=== PATIENT | male | born 1940 | race Caucasian/White ===

== ENCOUNTER 2023-08-03 15:15 | Inpatient (IN) | payer MEDICARE, BC, SELFPAY ==
[2023-08-03] VITALS (12 sets, daily range): BP systolic 111–143; BP diastolic 62–71; BMI 31.0; BMI 29.8
[2023-08-03 10:22] LABS: Urine Albumin Negative (Neg - Trace); Urine Bilirubin Negative (Negative); Urine Character Clear (Clear); Urine Color Yellow; Urine Glucose 3+ (Negative); Urine Ketone Negative (Negative); Urine Leukocyte Trace (Negative); Urine Nitrite Negative (Negative); Urine Occult Blood Negative (Negative); Urine Urobilinogen Negative (Neg - 1+)
[2023-08-03 10:23] LABS: Glucose - Point of Care 137 mg/dl (70-99)
[2023-08-03 10:23] LABS: % Basophils 0.1 % (0-2); % Immature Granulocytes 0.6 % (0-0.5); % Lymphocytes 3.6 % (20.5-51.1); % Monocytes 10.3 % (1.7-9.3); % Neutrophils 85.4 % (42.2-75.2); Absolute Immature Granulocytes 0.1 10^3/uL (0-0.05); Absolute Lymphocytes 0.5 10^3/uL (1.2-3.4); Absolute Monocytes 1.4 10^3/uL (0.1-0.6); Hematocrit 36.2 % (39.0-52.0); Hemoglobin 11.8 g/dL (13.0-18.0); Mean Corp Hgb Conc. 32.6 g/dL (33.0-37.0); Mean Corpuscular Hgb 29.9 pg (27.0-31.0); Mean Corpuscular Volume 91.6 fL (80.0-94.0); Mean Platelet Volume 10.3 fL (7.4-10.4); Nucleated Red Blood Cells % 0 % (-); Platelet Count 266 10^3/uL (130-400); Red Blood Cell Count 3.95 10^6/uL (4.70-6.10); Red Cell Dist. Width 14.3 % (11.5-14.5)
--- NOTE | 2023-08-03 10:27 | ED.GENMED ---
History of Present Illness
General
Chief Complaint: Change in Mental Status
Source: patient and records
Time Seen by Provider: 08/03/23 10:10
Travel History
Have you had any contact with someone who has COVID-19?: No
Do you have any symptoms of coronavirus? Fever > 100 degrees, chills, cough, shortness of breath, sore throat, loss of taste or smell, muscle aches, or headache?: No
History of Present Illness
History of Present Illness:
This patient is an 83-year-old male reportedly was noted to have change in mental status while at breakfast with slurred speech. Patient states that his blood sugars have been 'out of whack' since Tuesday and he just generally has not been feeling
well associated with drowsiness. He denies pain, and specifically denies abdominal pain, chest pain, urinary symptoms. He denies dyspnea. I noticed a cough which she states is occasional and nonproductive. He denies recent fever or chills. He
has not been able to check his blood sugar recently because he ran out of strips for the meter as per patient. He denies nausea, vomiting, or other complaints. I noticed a mild left facial droop which she states is chronic and baseline for him.
He also notes that right asymmetric leg swelling is baseline for him.
Past History
Past History
ED Past Medical History: CAD, Hypercholesterolemia and NIDDM
ED Past Surgical History: Cardiac and Cholecystectomy
Social History
Tobacco: Non-smoker
Alcohol: None
Drug: None
Living: other ([place])
Employment: Retired
Phy Exam
Physical Exam
Physical Exam:
GENERAL: Alert , in no apparent distress
EYE: pupils equal and reactive, eomi, no photphobia
NECK: Supple, no significant adenopathy.
ENT: o/p clr, mmdry
CARDIAC: Regular rate and rhythm .
LUNGS: Clear breath sounds bilaterally, no acute respiratory distress, no wheezes/rales/rhonchi, occas cough noted
ABDOMEN: Soft, without focal tenderness, no r/g
NEUROLOGICAL: Alert and oriented to person, place, month andyear, speech sl slurred, mild L facial droop, maee, sens intact to light touch
SKIN: Warm and dry, skin intact.
MUSCULOSKELETAL: Sl R > L le edema, well perfused.
PSYCH: Normal and appropriate interaction.
Course
Orders/Labs/Results
Orders:
Orders
08/03/23 10:10
Blood Culture Q30M
GRADY Source: Blood/Venous
Specimen Description:
08/03/23 10:13
B-Hydroxybutyrate Urgent
Comment: ADD
CMP [Comprehensive Metabolic Panel] Urgent
Complete Blood Count/With Diff Urgent
NT-proBNP Urgent
Comment: ADD ON
Protein/Creat Ratio (Random) Routine
Date Specimen was Collected: 08/03/23
Time Specimen was Collected: 10:12
Comment: ADD ON
TSH Urgent
Comment: ADD ON
Urinalysis Reflex To Culture Urgent
Date Specimen was Collected: 08/03/23
Time Specimen was Collected: 10:12
Urine Microscopic Reflex Cult Urgent
Urine Culture Urgent
GRADY Source: U
Specimen Description:
Date Specimen was Collected: 08/03/23
Time Specimen was Collected: 10:12
08/03/23 10:23
CT Head W/o Iv Contrast Stat
Comment:
Reason For Exam: mental status change
08/03/23 10:24
Electrocardiogram (*1) Urgent
Reason for Study: Other
Other Reason for Exam: sepsis
Cardiac Monitoring- Treatment ONCE
EKG- Treatment ONCE
0.9% Sodium Chloride 1000 ml [Nss] 1,000 ml IV BOLUS
CR Chest - 2 Views Urgent
Comment:
Reason For Exam: cough
08/03/23 10:55
COVID-19 Antigen Urgent
Source: Nasal Swab
Lactic Acid Q4H
Comment: CANCEL 2nd LACTIC ACID IF 1st LACTIC ACID IS LESS THAN 2
Troponin I Urgent
Influenza A+B Rapid Molecular Stat
GRADY Source: Nasal Swab
Specimen Description:
08/03/23 11:13
Blood Culture Q30M
GRADY Source: Blood/Venous
Specimen Description:
08/03/23 11:20
CT Abd/pel Without Iv Or Oral Urgent
Comment:
Reason For Exam: new onset renal failure, uti
08/03/23 11:21
Aztreonam [Azactam] 2,000 mg IV NOW STA
08/03/23 11:45
Echo 2D MMode Color/Doppler Routine
Reason for Study: abnormal EKG
08/03/23 14:40
Add On- LAB Routine
Tests Added?: pCHF BNP, TSH
08/03/23 14:44
Lactic Acid Q4H
Comment: CANCEL 2nd LACTIC ACID IF 1st LACTIC ACID IS LESS THAN 2
08/03/23 14:46
Admit/Transfer Patient As Directed
Co-Sign Provider:
Level of Care: Inpatient admission
Assign to:: ICU
Physician / Group: Cristofer
Diagnosis: SHADY
Reason for Hospitalization: above
Expected length of stay greater than two midnights?: Yes
ELOS- Estimated Length of Stay in days: 3
I certify the patient meets the requirements for IP care: Yes
08/03/23 14:52
Code Status As Directed
Resuscitation Status: Full Code
08/03/23 Dinner
1800 calorie (15 carb) Diabetic
At Your Request: Limited Participation
08/03/23 16:59
Acetaminophen [Tylenol] 650 mg PO Q4HPRN PRN
Aspirin Low Dose EC [Aspir Low (Enteric Coated)] 81 mg PO DAILY
Atorvastatin [Lipitor] 40 mg PO NOON
Dextrose 50%-Water [Dextrose 50% Syringe] 12.5 grams IV [id number] PRN
Glucagon [GlucaGen] 1 mg IM PRN PRN
Insulin Aspart Corrective Low [Novolog Flexpen-Low Resistance] See Protocol SC AC
Metoprolol Xl [Toprol Xl] 100 mg PO NOON
08/03/23 16:59
CARDIOLOGY CONSULT Routine
Consulting Provider: Ludin Douglass
Was physician already notified: Yes
NEPHROLOGY CONSULT Routine
Consulting Provider: Adam Dodd
Was physician already notified: Yes
UROLOGY CONSULT Routine
Consulting Provider: Owen Peraza Jr.
Was physician already notified: Yes
Bedside Glucose Monitoring As Directed
Frequency: AC&HS
Comment: Change to q6h if pt on TPN, tube feeding or not eating
Sequential Compression Device [Pneumatic Compression Sleeves] As Directed
Type: Knee high
DX Deep Vein Thrombosis Video Routine
08/03/23 18:00
CefTRIAXone [Rocephin] 1,000 mg IV Q24H
08/03/23 18:01
Troponin I Q8H
08/03/23 20:30
STOOL [C difficile Antigen & Toxins] Urgent
GRADY Source: Feces/Stool
Specimen Description:
Date Specimen was Collected: 08/03/23
Time Specimen was Collected: 20:29
Stool Culture Urgent
GRADY Source: Feces/Stool
Specimen Description:
Date Specimen was Collected: 08/03/23
Time Specimen was Collected: 20:29
08/03/23 22:00
Insulin Glargine Lantus [Lantus] 10 units Subcutaneous Insulin Syringe [Syringe-Insulin] 0 unit SC HS
08/04/23 03:37
CBC/With Diff [Complete Blood Count/With Diff] IN AM
CMP [Comprehensive Metabolic Panel] IN AM
Glycohemoglobin (HgbA1c) IN AM
Troponin I Q8H
08/04/23 12:00
Levothyroxine [Synthroid] 75 mcg PO NOON
Abnormal Lab Results
08/03/23 08/03/23 08/03/23
10:13 10:21 10:55
WBC 14.0 H 10^3/uL
(4.8-10.8)
RBC 3.95 L 10^6/uL
(4.70-6.10)
Hgb 11.8 L g/dL
(13.0-18.0)
Hct 36.2 L %
(39.0-52.0)
MCHC 32.6 L g/dL
(33.0-37.0)
Abs Immat Gran (auto) 0.1 H 10^3/uL
(0-0.05)
Absolute Neuts (auto) 12.0 H 10^3/uL
(1.4-6.5)
Absolute Lymphs (auto) 0.5 L 10^3/uL
(1.2-3.4)
Absolute Monos (auto) 1.4 H 10^3/uL
(0.1-0.6)
Immature Gran % 0.6 H %
(0-0.5)
Neutrophils % 85.4 H %
(42.2-75.2)
Lymphocytes % 3.6 L %
(20.5-51.1)
Monocytes % 10.3 H %
(1.7-9.3)
Potassium 5.3 H mmol/L
(3.5-5.1)
Chloride 109 H mmol/L
(98-107)
Carbon Dioxide 19 L mmol/L
(22-30)
BUN 64 H mg/dl
(9-20)
Creatinine 4.7 H* mg/dL
(0.7-1.3)
Glucose 145 H mg/dl
(70-99)
Lactic Acid 2.5 H mmol/L
(0.7-2.0)
AST 95 H U/L
(17-59)
Troponin I 23.500 H* ng/ml
Total Protein 5.6 L g/dl
(6.3-8.2)
Albumin 3.1 L g/dl
(3.5-5.0)
Leukocyte Esterase Rfl Trace A
(Negative)
Urine WBC (Reflex) 16-20 A /HPF
(0-5)
Urine Bacteria (Reflex) Few A
(Negative)
Urine Glucose 3+ A
(Negative)
B-Hydroxybutyrate 0.67 H mmol/L
(0.02-0.27)
POC Glucose 137 H mg/dl
(70-99)
08/03/23 10:13
08/03/23 10:13
Vital Signs
Initial and Last Documented VS:
Initial Vital Signs
Pulse Resp BP Pulse Ox
75 18 126/64 96
08/03/23 10:04 08/03/23 10:04 08/03/23 10:04 08/03/23 10:04
Last Documented Vital Signs
Temp Pulse Resp BP Pulse Ox
97.7 F 66 16 107/56 97
08/09/23 11:05 08/09/23 12:01 08/09/23 11:05 08/09/23 12:01 08/09/23 11:05
*Critical Care Note
Total Time (30-74mins, 75-104mins- exclusive of procedures): Not Applicable
Update Note
Update Note:
Patient presents to the Emergency Department with ___reported change in mental status
Number and Complexity of Problems Addressed at the Encounter
� Chronic conditions affecting care:
� Acute Exacerbation and/or Progression of Chronic Illness:
� Differential Diagnosis includes: But not limited to hypoglycemia, hyperglycemia/DKA, electrolyte imbalance, infection, TIA/CVA, etc.
Amount and/or Complexity of Data to be Reviewed and Analyzed
� I performed an independent evaluation of and my interpretation is:
EKG:St elevation noted, greater than in prior ecg in infer leads
CT:head nad, cxr nad
1).The prostate is enlarged measuring 6.9 cm
The urinary bladder is markedly distended measuring approximately 14 x 14 x 12 cm.
There is severe left-sided hydronephrosis and left hydroureter down to the level of the urinary bladder and moderate right hydronephrosis and right artery down to the level of the urinary bladder. Additionally, there is moderate-severe bilateral
perinephric edema.
2). There is a 4 mm wall calcification at the anterior aspect of the right side of the urinary bladder.
3). There is cholecystectomy
4).There is small right pleural effusion with compressive atelectasis of the right lung base.
There is mild acinar and interstitial airspace disease posterior left lung base
Xrays:wbc elevation, mild anemia..new onset ARF, u/a suggestive of infection.
Laboratory Studies:
Other:
� Review of other/old records reveals:
� Clinical information was obtained by an independent historian:
� Prescriptions/Medications Considered but not given:
� Further testing considered but not performed:
Risk of Complications and/or Morbidity or Mortality of Patient Management
� Social determinants of health affecting care:
� Discussion with other providers (PCP, Hospitalists, Consultants, etc):
� Escalation of care including admission/observation vs risk of discharge considered: 1119am d/w Dr Evonne Argueta, given no cp,w ill await trop which is still pending.
Trop noted, pt still without cp...seen by DR Douglass, will get echo now,likley demand ischemia.
CT noted by me, large bladder with ?L renal abnl..awaiting formal read. Suspect urosepsis at this time,bp stable, abx ordered and started. Case d/w daughter who reports pt having diarrhea for last 2 wks. I added c dif and stool cx. She also
notes pt having urinary frequency lately. Of note, I called [place], unable to reach someone who witnessed event today. He remains awake but sleepy, oriented.
1244 pm over 2L drained with [place]. CT noted. TT to uro. D/w Dr Peraza, agrees with plan, given bladder drained over short period of time, hospitalists to avoid lovenox/thinners in short term given risk of hematuria.
ED Attending Note
-
Portions of this chart may have been created with voice recognition software.� Occasional wrong word or��sound alike� substitutions may have occurred due to the inherent limitations of voice recognition software.
Discharge Plan
Departure
Patient Disposition: Admit
Date of Disposition: 08/03/23
Time of Disposition: 13:04
Admit to doctor: conchis
Presentation/result/management discussed w/ accepting MD/DO: mitchell douglass
Condition: Fair
Discharge Problem:
Acute urinary retention, Acute renal failure, Acute UTI
Interventions
Interventions:
*Risk Screen - Suicide Last Done: 08/03/23 10:22
*General Assessment Last Done: 08/03/23 10:04
*Neglect/Abuse Screening Last Done: 08/03/23 10:22
ED- Fall Risk Assessment Last Done: 08/03/23 10:22
*ED COVID-19 Vaccine History Last Done: 08/03/23 10:04
*Nursing Disposition Last Done: 08/03/23 16:54
ED- Pulmonary Assessment Last Done: 08/03/23 10:22
ED-Psychological Assessment Last Done: 08/03/23 16:54
ED- Neurological Assessment Last Done: 08/03/23 10:22
ED- Cardiac Assessment Last Done: 08/03/23 10:22
Discharge Date and Time
Discharge Date/Time: 08/03/23 16:55
[2023-08-03 10:33] LABS: Urine Bacteria Few (Negative); Urine Squamous Cell 0-2 /LPF (Few)
[2023-08-03 10:34] LABS: Urine Red Blood Cell 0-2 /HPF (0-2); Urine White Cell 16-20 /HPF (0-5)
[2023-08-03] MEDS: NSS 1000 IV (10:45)
[2023-08-03 11:09] LABS: ALT (SGPT) 33 U/L (0-50); AST (SGOT) 95 U/L (17-59); Albumin 3.1 g/dl (3.5-5.0); Alkaline Phosphatase 87 U/L (38-126); Blood Urea Nitrogen 64 mg/dl (9-20); Calcium 8.6 mg/dl (8.4-10.2); Carbon Dioxide 19 mmol/L (22-30); Chloride 109 mmol/L (98-107); Estimated Creatinine Clearance 13 ml/min; Glucose 145 mg/dl (70-99); Potassium 5.3 mmol/L (3.5-5.1); Sodium 139 mmol/L (135-145); Total Bilirubin 0.6 mg/dl (0.2-1.3); Total Protein 5.6 g/dl (6.3-8.2); eGFR 11.52
[2023-08-03 11:41] LABS: Lactic Acid 2.5 mmol/L (0.7-2.0)
[2023-08-03 11:46] LABS: COVID-19 Antigen Negative (Negative)
[2023-08-03] MEDS: AZACTAM 2000 MG IV (11:54)
--- NOTE | 2023-08-03 12:17 | CON.CAR ---
Addendum entered and electronically signed by Ludin Douglass MD 08/03/23 15:50:
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 His friend told him he looked bad at breakfast, and should go to hospital. He denies chest pain.
Exam: RRR, III/ systolic murmur at apex, 2+ LE edema. Cr 4.7, WBC 14, TnI 23.5. EKG with NSR, borderline ST elevation inferiorly.
Echo: decline in EF from 50% to 15%, severe MR.
Discussed with team. He is thought to have an obstructive uropathy with urinary retention, possible UTI, and acute renal failure. A champagne was placed with 2L urine output.
There is no chest pain. 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 Discussed with interventional cards. Given Cr 4.7, we will not plan for cath at this time, but will re-assess as he recovers and Cr improves. Continue ASA 81mg. Continue Toprol XL. Avoid nephrotoxic
agents.
He appears volume overloaded. Hopefully will continue to auto-diurese with catheter in place.
Cath (1998): 99% mid LAD, 90% distal LAD, 100% prox RCA, RI 'critical dz'
Original Note:
Consultation
Consultation Request
Date/Time Consultation Requested: 08/03/23 1143
Date/Time Consultation Performed: 08/03/23 1200
Requesting Provider: Dr. Champagne
Performing Provider: Emi BONE for Dr. Douglass
Reason for Consultation: abnormal EKG and troponin
Medical History
-
Chief Complaint: change MS
History of Present Illness:
83 y/o male with complex coronary artery disease (single vessel CABG 1998/known distal occluded vessels), DM, hypertension, dyslipidemia, and ICM (most recent EF 50%) who has had fatigue, diarrhea, frequent urination recently. Today, at [email or web address], he
was noted to have some confusion and he is here for further assessment. CT head negative. He is seen to have SHADY. He also has trop of [address]/T abnormalities (lateral, inferior). He has no CP or SOB, though to my assessment does have some
increased WOB. Echo to be done now in ER.
Past Medical History
Past Medical History: CAD, HTN, Hypercholesterolemia, NIDDM and Other (CM, as above)
Past Surgical History: Cardiac
Social History
Tobacco: Non-Smoker
Living: Other ([place] )
Family History
Family History: Reviewed & Not Pertinent
Allergies / Home Medications
Allergy/AdvReac Type Severity Reaction Status Date / Time
amoxicillin Allergy Nausea / Verified 08/03/23 10:11
Vomiting
iodine Allergy Hives Verified 08/03/23 10:11
Medication Instructions Recorded Confirmed Type
aspirin 81 mg tablet,delayed 81 mg PO DAILY Blood clot 06/09/20 08/03/23 History
release prevention/tx
atorvastatin 40 mg tablet 40 mg PO NOON High cholesterol 06/09/20 08/03/23 History
levothyroxine 75 mcg tablet 75 mcg PO NOON Thyroid 06/09/20 08/03/23 History
metformin 500 mg tablet,extended 1,000 mg PO BID Diabetes 06/09/20 08/03/23 History
release 24 hr
metoprolol succinate 100 mg 100 mg PO NOON Heart 06/09/20 08/03/23 History
tablet,extended release 24 hr disease/condition
nitroglycerin 0.4 mg sublingual 0.4 mg sublingual [id number] PRN 06/09/20 08/03/23 History
tablet chest pain
ramipril 5 mg capsule 5 mg PO DAILY Blood pressure 06/09/20 08/03/23 History
acetaminophen 325 mg tablet 650 mg PO Q4HPRN PRN fever >/= 08/03/23 08/03/23 History
100.4F/ROLLE/mild pain
empagliflozin 25 mg tablet 25 mg PO DAILY 08/03/23 08/03/23 History
(Jardiance)
insulin aspart U-100 100 unit/mL 10 unit SC AC 08/03/23 08/03/23 History
(3 mL) subcutaneous pen (Novolog
FlexPen U-100 Insulin aspart)
insulin glargine 100 unit/mL (3 22 unit SC HS 08/03/23 08/03/23 History
mL) subcutaneous pen (Lantus
Solostar U-100 Insulin)
Review of Systems
-
History Source: Patient
All other systems: Negative unless noted
Constitutional: Fatigue
Abdomen/GI: Diarrhea
: Frequency
Neurological: Other (confusion)
Physical Exam
Vital Signs
Pulse Resp BP Pulse Ox
86 18 143/67 94
08/03/23 12:02 08/03/23 10:04 08/03/23 11:13 08/03/23 11:30
Lab Results
08/03/23 10:13
08/03/23 10:13
Troponin I 23.500 ng/ml H* 08/03/23 10:55
Physical Exam
General: Well Developed, Well Nourished and Other (increased WOB)
HEENT: Normocephalic and Anicteric
Respiratory: Other (coarse sounds left base, increase WOB, but denies SOB)
Cardiac: Regular Rhythm and Peripheral Edema
Musculoskeletal: Edema (mild BLE edema (R > L))
Skin: Warm and Dry
Neuro: Awake, Alert and Other (follows commands, but tired)
Psych: Calm
Impression / Plan
-
Change MS, Fatigue, Leukocytosis:
-blood and urine cx pending
-IV abx given
Abnormal troponin:
-EKG also abnormal as noted
-denies any CP or SOB
-trop 23
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
-trend trops and EKG's and obtain echo, remains CP free
SHADY:
-normal last month
-CT abd done in ER
-management per nephro
-will need to hold ACEI, metformin
CAD hx CABG (details as noted):
-continue ASA, statin, and metoprolol
DM:
-management per primary team
HTN:
-on BB
-monitor with med adjustments
ICM:
-most recent echo EF 50% 2021- update here now
Data Reviewed
-
EKG: Tracing Personally Visualized and interpreted (NSR 74 BPM: inferior and lateral ST/T abnormalities)
Radiology: Report Reviewed by me (CXR: No active cardiopulmonary disease. Suboptimal inspiration)
Medical Tests (Nuc Med, Echo etc): Report Reviewed by me (echo 07/20/21: EF 50%, by visual assessment. Basal to mid inferior/inferoseptal akinesis/dyskinesis. Distal anteroseptal, anterior, and apical hypokinesis.Moderately dilated left atrium.)
Labs: Labs Reviewed by me
--- NOTE | 2023-08-03 15:05 | HPS.HSE ---
Addendum entered and electronically signed by Kennedy Clveeland MD 08/03/23 15:42:
Right greater than left lower extremity edema according to patient chronic status post vein harvest for CABG.
Will check peripheral ultrasound for completeness.
Original Note:
Family Physician
-
Family Physician: Danyel Hicks
Chief Complaint
-
Altered mental status
History of Present Illness
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 Patient noted to have altered mental status early at the breakfast with slurred speech. Noted with poorly controlled blood glucose, unspecified
hypo or hyperglycemia. Became drowsy with no other focal neurologic complaints other than slurred speech. Patient denies any respiratory complaints. Denies chest pain. He has been having loose stools for a few days since most recent antibiotic
administration (unspecified reason), also noted not able to empty his bladder at home. Patient denies any fever or chills. Apparently patient has not been able to check his blood glucose recently given he ran out of glucose strips.
While in emergency room patient presents hemodynamically stable with stable respiratory status.
His exam revealed mild left fascial droop which he reports is a chronic and baseline.
CT scan of the head showed no evidence of acute abnormalities
Chest x-ray revealed clear lung hines
CT scan of the abdomen pelvis revealed bilateral hydronephrosis with full urinary bladder.
Patient was catheterized with 2 L of urine removed with Campbell catheter left in place.
In addition patient was found to have positive cardiac markers with troponin elevated up to 23 while complains of no chest pain. ECG showed possible consistent with prior�inferior ischemia.
Medical History
Past Medical History
Past Medical History: Reports CAD, Hypercholesterolemia, Hypothyroidism and IDDM
Past Surgical History: Reports Cardiac (CABG) and Cholecystectomy
Social History
Tobacco: Non-smoker
Alcohol: None
Drug: None
Personal:
Living: With Family
Family History
Family History: Not pertinent
Allergies / Home Medications
Allergies reflects when Allergies were last updated in [facility].
Home Medications with original date entered in [facility]
Allergy/Medication List:
Allergies
Allergy/AdvReac Type Severity Reaction Status Date / Time
amoxicillin Allergy Nausea / Verified 08/03/23 10:11
Vomiting
iodine Allergy Hives Verified 08/03/23 10:11
Home Medications
aspirin 81 mg tablet,delayed release 81 mg PO DAILY Blood clot prevention/tx 06/09/20
atorvastatin 40 mg tablet 40 mg PO NOON High cholesterol 06/09/20
levothyroxine 75 mcg tablet 75 mcg PO NOON Thyroid 06/09/20
metformin 500 mg tablet,extended release 24 hr 1,000 mg PO BID Diabetes 06/09/20
metoprolol succinate 100 mg tablet,extended release 24 hr 100 mg PO NOON Heart disease/condition 06/09/20
nitroglycerin 0.4 mg sublingual tablet 0.4 mg sublingual [id number] PRN chest pain 06/09/20
ramipril 5 mg capsule 5 mg PO DAILY Blood pressure 06/09/20
acetaminophen 325 mg tablet 650 mg PO Q4HPRN PRN fever >/= 100.4F/ROLLE/mild pain 08/03/23
empagliflozin 25 mg tablet (Jardiance) 25 mg PO DAILY 08/03/23
insulin aspart U-100 100 unit/mL (3 mL) subcutaneous pen (Novolog FlexPen U-100 Insulin aspart) 10 unit SC AC 08/03/23
insulin glargine 100 unit/mL (3 mL) subcutaneous pen (Lantus Solostar U-100 Insulin) 22 unit SC HS 08/03/23
Review of Systems
-
A 12 point ROS was completed and negative except as noted: Yes
Physical Exam
Vital Signs
Vital Signs
Pulse Resp BP Pulse Ox
86 18 137/71 100
08/03/23 14:45 08/03/23 10:04 08/03/23 13:00 08/03/23 14:45
Physical Exam
General: Well Developed, Well Nourished and No Apparent Distress
HEENT: NormoCephalic, Moist mucous membranes and Atraumatic
Respiratory: Clear
Cardiac: S1/S2 and Regular Rhythm; No Murmur or Rub
GI: Soft, Non Tender, Non Distended and Normal Bowel Sounds; No Organomegaly
Rectal: Deferred by Provider
Musculoskeletal: No Clubbing, No Cyanosis, Edema, Left Lower Extremity and Edema, Right Lower Extremity
Skin: No Rash
Neuro: Awake, Alert, Oriented and Nonfocal/grossly intact
Laboratory Results
-
08/03/23 10:13
08/03/23 10:13
Laboratory Results
Lactic Acid 2.5 mmol/L (0.7-2.0) H 08/03/23 10:55
Total Bilirubin 0.6 mg/dl (0.2-1.3) 08/03/23 10:13
AST 95 U/L (17-59) H 08/03/23 10:13
ALT 33 U/L (0-50) 08/03/23 10:13
Alkaline Phosphatase 87 U/L (38-126) 08/03/23 10:13
Troponin I 23.500 ng/ml H* 08/03/23 10:55
Data Reviewed
-
Diagnostic Radiology: Report Reviewed by me
CT Scan: Report Reviewed by me
Lab Data: Labs Reviewed by me
Impression/Plan
-
IMPRESSION:
Altered mental status/toxic metabolic encephalopathy secondary to acute kidney injury
SHADY likely secondary to acute obstructive uropathy
Bilateral hydronephrosis
Abnormal urinalysis with concern for UTI.
Normal anion gap metabolic acidosis.
Marginally elevated lactic acid level.
Hyperkalemia.
Type II [place] suspect secondary to demand ischemia in the settings of acute illness
Conditions prior to admission:
CAD status post single-vessel CABG.
Ischemic cardiomyopathy with most recent LVEF 50% 2021
IDDM.
Essential hypertension
Dyslipidemia.
Hypothyroidism on replacement.
PLAN:
Altered mental status mostly drowsiness
No focal findings on neurologic exam
Most likely toxic metabolic encephalopathy in the settings of acute kidney injury.
CT scan of the head with no acute abnormalities.
Monitor closely.
Acute kidney injury.
Obstructive uropathy/BPH with urinary retention.
CT scan findings consistent with
The prostate is enlarged measuring 6.9 cm
The urinary bladder is markedly distended measuring approximately 14 x 14 x 12 cm.
There is severe left-sided hydronephrosis and left hydroureter down to the level of the urinary bladder and moderate right hydronephrosis and right artery down to the level of the urinary bladder. Additionally, there is moderate-severe bilateral
perinephric edema.
Catheterized with 2 L of urine drained with Campbell catheter placed in ED on 08/03
Urology consultation
With rapid decompression of urinary bladder, monitor closely for hematuria. In favor to hold heparin products.
Normal anion gap metabolic acidosis
Suspect multifactorial with SHADY, as well as reported prolonged period of diarrhea with recent antibiotic administration
Hyperkalemia in the settings of metabolic acidosis and CORNELIO patient
Hold ramipril
Anticipate improvement with urinary tract decompression.
Would avoid hydration given volume overload upon presentation as well new findings of severely reduced LVEF at 15%. See below.
Abnormal urinalysis mostly with microhematuria.
Afebrile and hemodynamically stable
Reasonable concern for UTI.
Will cover with antibiotics status post single dose of aztreonam in ED, continue ceftriaxone pending urine and blood cultures.
Type II [place] secondary to demand ischemia
CAD status post single-vessel CABG
Ischemic cardiomyopathy.
Most recent echocardiogram with LVEF of 50%
Troponin 23 upon presentation
Chest pain-free.
ECG suggestive of possible inferior ischemia.
Repeat echocardiogram in ED 08/03/2023: Mild left ventricular dilation with akinesis of septal, inferior and inferior lateral luna and severe hypokinesis of the remaining anterior/anterior lateral wall with severely reduced LVEF at 10-15%.
Discussed with cardiology
Trend troponin
Continue metoprolol and aspirin.
Continue Lipitor
If develops chest pain or cardiac markers, may require IV heparin and ischemic evaluation hopefully once renal function improved.
Volume overload with slightly increased work of breathing, minimal requirements for supplemental oxygen currently. Noted with peripheral edema.
Hold for auto-diuresis with urinary tract decompression. If increased oxygen requirements may need IV diuresis.
IDDM.
Reported erratic blood glucose upon presentation
Normoglycemic on BMP.
Given SHADY will reduce Lantus dose from 22 to 10 units at bedtime. Hold AC NovoLog
Basal bolus protocol with serial Accu-Cheks
Hold SGLT2 inhibitor and metformin.
Check serum acetone (SGLT2 inhibitor and SHADY increases risk of ketoacidosis).
Persistent diarrhea with recent antibiotic administration.
Will check stool for C. difficile.
Hypothyroidism
Update TSH
Continue levothyroxine
Full code.
DVT prophylaxis mechanical
[2023-08-03 15:27] LABS: Lactic Acid 1.4 mmol/L (0.7-2.0)
--- NOTE | 2023-08-03 15:38 | CON.INTV ---
Consultation
Consultation Request
Date/Time Consultation Requested: 08/03/2023-3:30 PM
Date/Time Consultation Performed: 08/03/2023-3:45 PM
Requesting Provider: Hospitalist
Performing Provider: Dr. Rizzo
Reason for Consultation: Cardiomyopathy/CHF/hypotension/SHADY/critical care management
Medical History
-
Chief Complaint: Shortness of breath and metabolic encephalopathy
History of Present Illness:
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
CHF/acute kidney injury 08/03/2023. He feels improved. He did recognize me. He is a little confused but overall oriented. He has some shortness of breath at rest. He does not complain of any chest pain, chest pressure, productive cough, abdominal
pain, nausea. He states that his abdomen is somewhat full. He does have significant bilateral lower extremity swelling. Is unclear whether this is new. Chronic lower extremity swelling from vein graft harvest [place] in the past.
Past Medical History
Past Medical History: None (Hypertension. Hyperlipidemia. CAD. CABG. Hypothyroid. Diabetes. Cholecystectomy.)
Social History
Tobacco: Non-smoker
Alcohol: None
Drug: None
Personal:
Occupational Exposures: No known asbestos exposure
Environmental Exposures: No known tuberculosis exposure
Family History
Family History: Reviewed & Not Pertinent
Allergies / Home Medications
Allergies
Allergy/AdvReac Type Severity Reaction Status Date / Time
amoxicillin Allergy Nausea / Verified 08/03/23 10:11
Vomiting
iodine Allergy Hives Verified 08/03/23 10:11
Home Medications
Medication Instructions Recorded Confirmed Last Taken Type
aspirin 81 mg tablet,delayed 81 mg PO DAILY Blood clot 06/09/20 08/03/23 08/03/23 History
release prevention/tx
atorvastatin 40 mg tablet 40 mg PO NOON High cholesterol 06/09/20 08/03/23 08/02/23 History
levothyroxine 75 mcg tablet 75 mcg PO NOON Thyroid 06/09/20 08/03/23 08/02/23 History
metformin 500 mg tablet,extended 1,000 mg PO BID Diabetes 06/09/20 08/03/23 08/03/23 History
release 24 hr
metoprolol succinate 100 mg 100 mg PO NOON Heart 06/09/20 08/03/23 08/02/23 History
tablet,extended release 24 hr disease/condition
nitroglycerin 0.4 mg sublingual 0.4 mg sublingual [id number] PRN 06/09/20 08/03/23 Unknown History
tablet chest pain
ramipril 5 mg capsule 5 mg PO DAILY Blood pressure 06/09/20 08/03/23 08/03/23 History
acetaminophen 325 mg tablet 650 mg PO Q4HPRN PRN fever >/= 08/03/23 08/03/23 08/03/23 History
100.4F/ROLLE/mild pain
empagliflozin 25 mg tablet 25 mg PO DAILY 08/03/23 08/03/23 08/03/23 History
(Jardiance)
insulin aspart U-100 100 unit/mL 10 unit SC AC 08/03/23 08/03/23 Unknown History
(3 mL) subcutaneous pen (Novolog
FlexPen U-100 Insulin aspart)
insulin glargine 100 unit/mL (3 22 unit SC HS 08/03/23 08/03/23 08/02/23 History
mL) subcutaneous pen (Lantus
Solostar U-100 Insulin)
Review of Systems
-
Unable to Obtain full review of systems at this time due to: Other (Per HPI)
Vitals / Labs / Diagnostic Testing
Vital Signs
Pulse Resp BP Pulse Ox
86 18 137/71 100
08/03/23 14:45 08/03/23 10:04 08/03/23 13:00 08/03/23 14:45
Lab Data
08/03/23 10:13
08/03/23 10:13
Microbiology
08/03/23 10:55 Nasal Swab Influenza Types A & B (SERGEY) - Final
Negative for Influenza A & B, NAAT
Negative results must be combined with clinical observations
and patient history.
Nucleic Acid Amplification test (NAAT)performed on the
[employer] platform.
Diagnostic Testing:
Physical Exam
-
Exam:
Well-nourished and well-developed in no apparent distress
HEENT-atraumatic, normocephalic
Neck-supple, no JVD, no bruit
Heart regular with systolic murmur
Chest with diminished breath sounds, crackles at the bases and no wheezes
Abdomen-soft, nontender, nondistended, no hepatosplenomegaly
Extremities-no cyanosis, clubbing, lower extremity edema
Integument-intact, no rashes, lesions or ecchymosis
Neurology-alert and oriented, nonfocal motor and sensory exam
Assessment
-
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
CHF/acute kidney injury 08/03/2023.
Assessment
Toxic metabolic encephalopathy
SHADY
Bilateral hydronephrosis
Metabolic acidosis
Lactic acidosis
Elevated troponin-type II CA-initial troponin 23.5
EF 10%-down from 50% 2021
Severe mitral regurgitation
Hyperkalemia
Persistent diarrhea
Leukocytosis-WBC 14
Anemia-11.8-normocytic
Hyperglycemia
Hypoalbuminemia
Conditions present prior to admission:
Hypertension.
Hyperlipidemia.
CAD.
CABG.
Hypothyroid.
Diabetes.
Cholecystectomy.
Plan
Patient admitted to medical intensive care unit
Supplemental oxygen as needed
BiPAP and noninvasive ventilation if needed
Intubated mechanically ventilated if needed
Aspiration precautions
Nebulizers if needed
Cardiology following-correspondence reviewed
Trend troponin
Cardiac catheterization on hold due to elevated serum creatinine
Diuresis as tolerated
Monitor renal function, electrolytes, intake/output, lower extremity edema and weight
Replace electrolytes as needed
Pressors if needed
Nephrology evaluation-reviewed with Dr. Dodd
Monitor renal function
Replace electrolytes
Urology evaluation if needed
Monitor diarrhea
Replace electrolytes
Check C. difficile
Check cultures
Consider empiric antibiotics if UTI/infectious diarrhea suspected
Check hemoglobin
Transfuse as needed
Monitor blood sugar
Insulin supplementation as needed
DVT prophylaxis
Nutrition
Early mobilization
Reviewed current clinical situation with daughter Grecia-sounds like he would not necessarily want long-term mechanical ventilation, etc., however, he has been enjoying life and if there were reversible processes he would want temporary extraordinary
means of life support-we will respect the family wishes-intubated mechanically ventilated temporarily if clinically indicated, however, it is unlikely he would want that long-term. Grecia says that patient's wishes will be brought in.
Critical care statement: A total of 45 minutes of critical care time was provided for this patient today. This includes management of unstable vital signs, evaluation of the patient at bedside, reviewing the patient's pertinent medical records
including radiographs, diuresis management, pressor management,respiratory insufficiency management, microbiology, laboratory evaluations, and discussion with primary team, consultants, pharmacy, nutrition, physical therapy, case management, charge
nurse, critical care nursing, and respiratory therapy.
Diagnostic data:
Chest x-ray 06/09/2020-irregular opacification right lung base
Chest x-ray 08/03/2023-NAD
CT head 08/03/2023-no acute intracranial abnormalities, mild diffuse atrophy
CT abdomen and pelvis 08/03/2023-prostates enlarged, urinary bladder is markedly distended, severe left-sided hydronephrosis, 4 mm wall calcification, cholecystectomy, small right pleural effusion
Echocardiogram 08/03/2023-comparison made to 07/16/2021-EF now 10-15%, intermediate diastolic dysfunction, severe mitral valve regurgitation
Data Reviewed
-
EKG: Report reviewed by me
Radiology: Report reviewed by me
CT Scan: Report reviewed by me
Medical Tests (Nuc Med, Echo etc): Report reviewed by me
Labs: Labs reviewed by me
Old Records: Reviewed
Critical Care Time (in minutes): 45
--- NOTE | 2023-08-03 15:46 | W.CON.NEPH ---
Consultation
-
Date/Time Consultation Requested: 08/03/2023 1500
Date/Time Consultation Performed: 08/03/2023 1600
Requesting Provider: Dr Cleveland
Performing Provider: Dr Dodd
Reason for Consultation: SHADY
Medical History
-
Chief Complaint: SHADY
History of Present Illness:
83 y/o male with complex coronary artery disease (single vessel CABG 1998/known distal occluded vessels), DM, hypertension, dyslipidemia, and ICM (most recent EF 50%) who has had fatigue, diarrhea, frequent urination recently. Today, at [facility], he
was noted to have some confusion and he is here for further assessment. CT head negative. He is seen to have SHADY. He also has trop of [address]/T abnormalities (lateral, inferior). He has no CP or SOB. CT scan revealed bilateral
hydronephrosis and a Champagne catheter was placed with 2 L of urine output.
Past Medical History
Tonsillectomy, cholecystectomy, CABG
Heart failure reduced ejection fraction, hyperlipidemia, hypertension, diabetes mellitus type 2, coronary artery disease
Social History
Tobacco: Non-Smoker
Alcohol: Occasional
Family History
Family History: Not Pertinent
Allergies / Home Medications
Allergy/AdvReac Type Severity Reaction Status Date / Time
amoxicillin Allergy Nausea / Verified 08/03/23 10:11
Vomiting
iodine Allergy Hives Verified 08/03/23 10:11
Medication Instructions Recorded Confirmed Type
aspirin 81 mg tablet,delayed 81 mg PO DAILY Blood clot 06/09/20 08/03/23 History
release prevention/tx
atorvastatin 40 mg tablet 40 mg PO NOON High cholesterol 06/09/20 08/03/23 History
levothyroxine 75 mcg tablet 75 mcg PO NOON Thyroid 06/09/20 08/03/23 History
metformin 500 mg tablet,extended 1,000 mg PO BID Diabetes 06/09/20 08/03/23 History
release 24 hr
metoprolol succinate 100 mg 100 mg PO NOON Heart 06/09/20 08/03/23 History
tablet,extended release 24 hr disease/condition
nitroglycerin 0.4 mg sublingual 0.4 mg sublingual [id number] PRN 06/09/20 08/03/23 History
tablet chest pain
ramipril 5 mg capsule 5 mg PO DAILY Blood pressure 06/09/20 08/03/23 History
acetaminophen 325 mg tablet 650 mg PO Q4HPRN PRN fever >/= 08/03/23 08/03/23 History
100.4F/ROLLE/mild pain
empagliflozin 25 mg tablet 25 mg PO DAILY 08/03/23 08/03/23 History
(Jardiance)
insulin aspart U-100 100 unit/mL 10 unit SC AC 08/03/23 08/03/23 History
(3 mL) subcutaneous pen (Novolog
FlexPen U-100 Insulin aspart)
insulin glargine 100 unit/mL (3 22 unit SC HS 08/03/23 08/03/23 History
mL) subcutaneous pen (Lantus
Solostar U-100 Insulin)
Review of Systems
-
Fatigue, diarrhea, mental status change. No issues with urination. Brought in by family. No reports of chest pain, shortness of breath. The remainder of the complete review systems was negative.
Physical Exam
Vital Signs
Vital Signs
Pulse Resp BP Pulse Ox
86 18 137/71 100
08/03/23 14:45 08/03/23 10:04 08/03/23 13:00 08/03/23 14:45
Lab Results
WBC 14.0 10^3/uL (4.8-10.8) H 08/03/23 10:13
RBC 3.95 10^6/uL (4.70-6.10) L 08/03/23 10:13
Hgb 11.8 g/dL (13.0-18.0) L 08/03/23 10:13
Hct 36.2 % (39.0-52.0) L 08/03/23 10:13
Plt Count 266 10^3/uL (130-400) 08/03/23 10:13
eGFR 11.52 08/03/23 10:13
Albumin 3.1 g/dl (3.5-5.0) L 08/03/23 10:13
Assessment/Plan
-
Assessment
-SHADY
-bilateral hydronephrosis
-metabolic acidosis
-HTN
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
-elevated troponin
-HTN
-edema
Plan
-champagne
-no IVF/Diuretics for now
-follow BMP serially
-check urine studies
-trend troponin
-i expect Cr to improve with Champagne
-If BP remains stable and Cr improves, can try lasix
-d/w daughter
-critical care time 31 minutes
[2023-08-03] MEDS: LASIX 20 MG IV (16:08)
[2023-08-03 16:31] LABS: B-Hydroxybutyrate 0.67 mmol/L (0.02-0.27)
[2023-08-03 16:37] LABS: Blood Urea Nitrogen 60 mg/dl (9-20); Calcium 8.3 mg/dl (8.4-10.2); Carbon Dioxide 26 mmol/L (22-30); Chloride 111 mmol/L (98-107); Estimated Creatinine Clearance 16 ml/min; Glucose 128 mg/dl (70-99); Sodium 141 mmol/L (135-145)
[2023-08-03 17:03] LABS: NT-proBNP 18000 pg/ml
[2023-08-03 17:13] LABS: Glucose - Point of Care 99 mg/dl (70-99)
--- NOTE | 2023-08-03 17:23 | CON.MD ---
Consultation - Medical
-
see dictated note
pt with no known prior gu hx
presented with confusion/weakness/arf
ct shows massively distended bladder/nph and bilateral hydro
champagne placed- 2 liters of urine drained
pt now in icu- resting comfortably- urine clear
plan
continue champagne
when vss- start flomax and proscar
hand irrigated prn- hematuria would not be unexpected
track cr and ucx
pt will need to be discharged with champagne
[2023-08-03] MEDS: NOVOLOG FLEXPEN-LOW RESISTANCE SC (17:33)
[2023-08-03] MEDS: LIPITOR 40 MG PO (17:42)
[2023-08-03] MEDS: ASPIR LOW (ENTERIC COATED) 81 MG PO (17:42)
[2023-08-03] MEDS: TOPROL XL 100 MG PO (17:42)
[2023-08-03] MEDS: ROCEPHIN 1000 MG IV (17:42)
[2023-08-03] MEDS: STERILE WATER FOR INJECTION 10 ML IV (17:42)
[2023-08-03 17:48] LABS: TSH 1.94 uIU/ml (0.47-4.68)
[2023-08-03 18:00] LABS: Protein/creatinine Ratio 0.2; Urine Protein 12 mg/dl
[2023-08-03 18:33] LABS: INR 1.11; PT 14.3 Sec (11.4-14.6)
[2023-08-03 18:34] LABS: APTT 25.3 Sec (23.4-35.0)
--- NOTE | 2023-08-03 18:53 | PTCARENOTE ---
adm to ICU 3365 via ED bed, settled in room, champagne draining, VS noted. Complete CHG bath given, champagne care, some dry crusty skin cleaned. See assessment, admission completed, daughter in and out. ate dinner. very sleepy but arouses and does have
periods of being brighter. able to feed self with reminders, falls asleep. labs drawn and sent. Seen by Dr. Peraza.
--- NOTE | 2023-08-03 20:00 | PTCARENOTE ---
received patient. pt drowsy but arousable to voice. oriented x3. generalized weakness noted. SR on monitor. weak pedal pulses. on RA, denies SOB. denies pain. + bowel sounds. pt with large liquid bowel movement, stool specimen sent to lab. champagne in
place, draining clear yellow urine. CHG bath, fresh linens, oral care, champagne care done. pt turned and repositioned. plan of care ongoing.
[2023-08-03] MEDS: LANTUS 0.100000000000000006 UNITS SC (22:27)
[2023-08-03 23:09] LABS: Glucose - Point of Care 195 mg/dl (70-99)
[2023-08-04] VITALS (15 sets, daily range): BP systolic 103–148; BP diastolic 59–91; BMI 29.2; BMI 28.4
--- NOTE | 2023-08-04 00:28 | PTCARENOTE ---
patient reassessed. resting comfortably in bed. systems unchanged. patient repositioned, plan of care ongoing.
[2023-08-04 03:45] LABS: % Basophils 0.1 % (0-2); % Eosinophils 0.1 % (0-6); % Immature Granulocytes 0.7 % (0-0.5); % Monocytes 10.6 % (1.7-9.3); % Neutrophils 83.5 % (42.2-75.2); Absolute Immature Granulocytes 0.1 10^3/uL (0-0.05); Absolute Lymphocytes 0.6 10^3/uL (1.2-3.4); Absolute Monocytes 1.3 10^3/uL (0.1-0.6); Absolute Neutrophils 10.2 10^3/uL (1.4-6.5); Hematocrit 37.7 % (39.0-52.0); Hemoglobin 12.6 g/dL (13.0-18.0); Mean Corp Hgb Conc. 33.4 g/dL (33.0-37.0); Mean Corpuscular Hgb 30.7 pg (27.0-31.0); Mean Platelet Volume 10.3 fL (7.4-10.4); Nucleated Red Blood Cells % 0 % (-); Platelet Count 257 10^3/uL (130-400); Red Cell Dist. Width 14.4 % (11.5-14.5); White Blood Cell Count 12.2 10^3/uL (4.8-10.8)
--- NOTE | 2023-08-04 04:08 | PTCARENOTE ---
patient reassessed. systems unchanged. champagne draining clear yellow urine. AM labs sent. patient repositioned. plan of care ongoing.
[2023-08-04 04:10] LABS: ALT (SGPT) 26 U/L (0-50); AST (SGOT) 52 U/L (17-59); Albumin 2.7 g/dl (3.5-5.0); Alkaline Phosphatase 84 U/L (38-126); Blood Urea Nitrogen 57 mg/dl (9-20); Calcium 8.6 mg/dl (8.4-10.2); Carbon Dioxide 22 mmol/L (22-30); Chloride 109 mmol/L (98-107); Estimated Creatinine Clearance 22 ml/min; Glucose 151 mg/dl (70-99); Potassium 4.8 mmol/L (3.5-5.1); Sodium 143 mmol/L (135-145); Total Bilirubin 0.7 mg/dl (0.2-1.3); Total Protein 5.2 g/dl (6.3-8.2); eGFR 24.56
--- NOTE | 2023-08-04 06:52 | W.PN.URO.CBU ---
Today's Communication / Plan
-
continue champagne and prn hand irrigation
Assessment / Plan
-
bph
urinary retention
ARF- secondary to obstruction
vigorous urine output c/w post ob diuresis
HD stable
cr declining
ucx pending
will begin flomax and proscar
eventual plan for discharge with champagne
will follow
Diagnosis
-
Date of Service: August 04, 2023
-
Patient Diagnosis:
urinary retention
bph
ARF
Subjective
-
pt asleep
no events overnight
large volume urine output c/w post ob diuresis- clear
Objective
-
Vital Signs
Temp Pulse Resp BP Pulse Ox
97.6 F 73 27 133/68 95
08/04/23 03:38 08/04/23 04:00 08/04/23 04:00 08/04/23 04:00 08/04/23 04:00
Intake and Output
08/02/23 08/03/23 08/04/23
06:59 06:59 06:59
Intake Total 480 / 480
Output Total 4650 / 4650
Balance -4170 / -4170
Intake:
Oral fluids 480 / 480
Output:
Urine, Champagne 4650 / 4650
Laboratory Results
08/04/23 03:37
08/04/23 03:37
Physical Exam
-
General - no acute distress
--- NOTE | 2023-08-04 07:44 | W.PN.INTV ---
Today's Communication / Plan
Recommendations
Campbell
Auto diurese
Replace electrolytes
Monitor renal function
Eventual cardiac catheterization
Stable for transfer out of ICU-call pulmonary if respiratory issues arise
Assessment
-
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
CHF/acute kidney injury 08/03/2023.
Assessment
Toxic metabolic encephalopathy
SHADY-secondary to BPH/urinary retention/obstruction
Bilateral hydronephrosis
Metabolic acidosis
Lactic acidosis
Elevated troponin-type II ID-initial troponin 23.5
EF 10%-down from 50% 2021
Severe mitral regurgitation
Hyperkalemia
Persistent diarrhea
Leukocytosis-WBC 14
Anemia-11.8-normocytic
Hyperglycemia
Hypoalbuminemia
Conditions present prior to admission:
Hypertension.
Hyperlipidemia.
CAD.
CABG.
Hypothyroid.
Diabetes.
Cholecystectomy.
Plan
Hemodynamically improved
Wean supplemental oxygen
Incentive spirometry
Aspiration precautions
Cardiology following-correspondence reviewed
Continue to trend troponin
Cardiac catheterization on hold due to elevated serum creatinine
Diuresis continues as tolerated-auto diuresing with Campbell
Monitor renal function, electrolytes, intake/output, lower extremity edema and weight
Replace electrolytes as needed
Pressors if needed
Nephrology evaluation-reviewed with Dr. Dodd
Monitor renal pxmuqpql-cepzigci-xequw creatinine now 2.5
Replace electrolytes
Urology evaluation ongoing-correspondence reviewed
Follow diarrhea
Replace electrolytes
C. difficile negative
Stool cultures pending
Influenza negative
Urine cultures negative
Blood cultures negative
Consider empiric antibiotics if UTI/infectious diarrhea suspected
Follow hemoglobin
Transfuse as needed
Follow blood sugar-A1c elevated
Insulin supplementation as needed
DVT prophylaxis-sequential if lower extremity ultrasound negative
Nutrition
Early mobilization
Dr. Rizzo reviewed current clinical situation with daughter Grecia-08/03/2023-sounds like he would not necessarily want long-term mechanical ventilation, etc., however, he has been enjoying life and if there were reversible processes he would want
temporary extraordinary means of life support-we will respect the family wishes-intubated mechanically ventilated temporarily if clinically indicated, however, it is unlikely he would want that long-term. Grecia says that patient's wishes will be
brought in.
Patient's hemodynamics and oxygenation improved-stable for discharge out of ICU-call pulmonary if respiratory issues arise
Diagnostic data:
Chest x-ray 06/09/2020-irregular opacification right lung base
Chest x-ray 08/03/2023-NAD
CT head 08/03/2023-no acute intracranial abnormalities, mild diffuse atrophy
CT abdomen and pelvis 08/03/2023-prostates enlarged, urinary bladder is markedly distended, severe left-sided hydronephrosis, 4 mm wall calcification, cholecystectomy, small right pleural effusion
Echocardiogram 08/03/2023-comparison made to 07/16/2021-EF now 10-15%, intermediate diastolic dysfunction, severe mitral valve regurgitation
Subjective Dataa
Subjective Data
Date of Service:
Date of Service: August 04, 2023
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
Subjective:
Feels much improved, no complaints of shortness of breath at rest, chest pain, chest tightness, chest congestion, productive cough or abdominal pain
Review of Systems
General: Other (Per HPI)
Objective Data
Data Reviewed
Vital Signs / I&O / Oxygen:
Vital Signs
Temp Pulse Resp BP Pulse Ox
97.6 F 73 27 133/68 95
08/04/23 03:38 08/04/23 04:00 08/04/23 04:00 08/04/23 04:00 08/04/23 04:00
Intake and Output
08/03/23 08/04/23 08/05/23
06:59 06:59 06:59
Intake Total 960 / 960
Output Total 6150 / 6150
Balance -5190 / -5190
SaO2 95
Physical Exam
General: Respiratory Distress and Comfortable
HEENT: Normocephalic, Anicteric and Moist Mucous Membranes
Cardiovascular: Regular Rhythm, Murmur and Peripheral Edema
Respiratory: Wheeze (n), Crackles (Basilar), Rhonchi (n), Non-Labored Respirations, Accessory Resp Muscle Use (n) and Stridor (n)
GI: Soft, Non Distended and Non Tender
Neurology: Awake, Alert and No Motor Deficits
Skin: Warm, Good Color, Cyanosis, Jaundice (n) and Rash (n)
Labs/Micro/Reports
Lab Data
08/04/23 03:37
08/04/23 03:37
Laboratory Results
08/03/23
18:01
PT 14.3
INR 1.11
APTT 25.3
Microbiology
08/03/23 10:55 Nasal Swab Influenza Types A & B (SERGEY) - Final
Negative for Influenza A & B, NAAT
Negative results must be combined with clinical observations
and patient history.
Nucleic Acid Amplification test (NAAT)performed on the
[employer] platform.
[2023-08-04 07:58] LABS: Glucose - Point of Care 146 mg/dl (70-99)
[2023-08-04] MEDS: ASPIR LOW (ENTERIC COATED) 81 MG PO (08:09)
[2023-08-04] MEDS: PROSCAR 5 MG PO (08:09)
[2023-08-04] MEDS: FLOMAX 0.400000000000000022 MG PO (08:09)
[2023-08-04] MEDS: NOVOLOG FLEXPEN-LOW RESISTANCE SC (08:09)
--- NOTE | 2023-08-04 09:12 | W.PN.NEPH.PH ---
Today's Communication / Plan
-
autodiurese
Assessment/Plan
-
Assessment
-SHADY
-bilateral hydronephrosis
-metabolic acidosis
-HTN
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
-elevated troponin
-HTN
-edema
Plan
-champagne
-no IVF/Diuretics for now
-follow BMP
-trend troponin
-i expect Cr to improve with Champagne
-could consider cardiac cath once Cr < 1.5 (probably not until tuesday)
-
-
Date of Service: August 04, 2023
CC / HPI / ROS
-
Chief Complaint:
SHADY
History of Present Illness:
Champagne in place for obstructive uropathy
SHADY/Cr down to 2.5
autodiuresing
BP stable
Troponin falling
Review of Systems:
no CP/SOB
Labs
-
Labs:
WBC 12.2 10^3/uL (4.8-10.8) H 08/04/23 03:37
RBC 4.10 10^6/uL (4.70-6.10) L 08/04/23 03:37
Hgb 12.6 g/dL (13.0-18.0) L 08/04/23 03:37
Hct 37.7 % (39.0-52.0) L 08/04/23 03:37
Plt Count 257 10^3/uL (130-400) 08/04/23 03:37
Sodium 143 mmol/L (135-145) 08/04/23 03:37
Potassium 4.8 mmol/L (3.5-5.1) 08/04/23 03:37
Chloride 109 mmol/L (98-107) H 08/04/23 03:37
Carbon Dioxide 22 mmol/L (22-30) 02/08/24 03:37
BUN 57 mg/dl (9-20) H 08/04/23 03:37
Creatinine 2.5 mg/dL (0.7-1.3) H 08/04/23 03:37
eGFR 24.56 08/04/23 03:37
Glucose 151 mg/dl (70-99) H 08/04/23 03:37
Calcium 8.6 mg/dl (8.4-10.2) 08/04/23 03:37
Skd-M-Gcyfezbkybz Pept 69363 pg/ml 08/03/23 10:13
Albumin 2.7 g/dl (3.5-5.0) L 08/04/23 03:37
Physical Exam
-
Vital Signs:
Vital Signs
Temp Pulse Resp BP Pulse Ox
97.4 F 73 27 133/68 95
08/04/23 08:08 08/04/23 04:00 08/04/23 04:00 08/04/23 04:00 08/04/23 04:00
Cardiovascular:: Regular rate and rhythm
Respiratory:: Bilateral: Coarse
Lung Excursion:: Normal
Abdomen:: Nontender and Soft
Bowel Sounds:: Normal
Extremity Edema:: +3: Bilateral:
--- NOTE | 2023-08-04 09:16 | PTCARENOTE ---
recd pt 0715 handoff at bedside, resting when undisturbed. seen by Bud Roth, Matthias, and Ju. OOB to chair, gait steady, used RW min assist. edema remains BLE greater on R with PVD color changes. pending ultrasound. in good
spirits. [facility], occas forgetful marivel upon awakening. ate breakfast, to bathroom for BM. Otherwise resting in chair. Campbell draining, small amt white sediment and bloody thread minimal.
--- NOTE | 2023-08-04 09:53 | W.PN.CD ---
Today's Communication / Plan
-
-Continue supportive txand when creatinine has improved and patients condition permits we will proceed with cath this admit.
Impression / Plan
-
Change MS, - multifactorial, metabolic abnormalities and possible infection
- improving
- montior as conditions are being treated.
Abnormal troponin:
-denies any CP or SOB
-trop 23- peak which was the first troponin
-possibel Type II LA in setting of known coronary disease and acute underlying infectious illness vs late presentation after TType I Mi occurring prior to presentation to the hospital
- severly recduced LVF
- ASA. Holding on heparin
-Continue supportive txand when creatinine has improved and patients condition permits we will proceed with cath this admit.
SHADY:
-obstructive
- improing and creainine
CAD hx CABG (details as noted):
-continue ASA, statin, and metoprolol
DM:
-management per primary team
HTN:
-on BB
-monitor with med adjustments
ICM:
-new severly reduced LVF
- continue supportive tx
- addtional medical therapy after renal fiunctionimproves.
- tgimingof cathas above
Physical Exam
Vital Signs/Labs
Vital Signs
Temp Pulse Resp BP Pulse Ox
97.4 F 73 27 133/68 95
08/04/23 08:08 08/04/23 04:00 08/04/23 04:00 08/04/23 04:00 08/04/23 04:00
08/03/23 08/04/23 08/05/23
06:59 06:59 06:59
Actual Weight 91.5 kg 89.7 kg
08/04/23 03:37
08/04/23 03:37
PT 14.3 Sec (11.4-14.6) 08/03/23 18:01
INR 1.11 08/03/23 18:01
APTT 25.3 Sec (23.4-35.0) 08/03/23 18:01
TSH 1.94 uIU/ml (0.47-4.68) 08/03/23 10:13
08/03/23
10:13
Ufl-Q-Xhensahixvr Pept [id number]
LAB Results
08/03/23 08/03/23 08/04/23
10:55 18:01 03:37
Troponin I 23.500 H* 19.000 H* 17.000 H*
Physical Exam
Constitutional: No acute distress
Cardiovascular: Rhythm & rate is regular
Respiratory: Wheeze Absent, Rhonchi Absent and Other (rare crackle right base and decreased BS at right base)
GI: Non tender
Neuro/Psych: Alert
Other: Other (mild bilat leg edema)
Data Reviewed
-
Date of Service: August 04, 2023
Medical Decision Making: Review of Case with other Provider
EKG: Report Reviewed by me
Medical Tests (PFT, Pathology etc): Report Reviewed by me
Labs: Labs Reviewed by me
[2023-08-04 11:51] LABS: Glucose - Point of Care 208 mg/dl (70-99)
--- NOTE | 2023-08-04 12:00 | PTCARENOTE ---
OOB for lunch, appetite good, no other c/o. tired when not stimulated. PT attempted, pt too groggy, agreed to work with them tomorrow.
[2023-08-04] MEDS: NOVOLOG FLEXPEN-LOW RESISTANCE 2 UNITS SC ×2 (12:01→16:49)
[2023-08-04] MEDS: LIPITOR 40 MG PO (12:06)
[2023-08-04] MEDS: SYNTHROID 75 MCG PO (12:07)
[2023-08-04] MEDS: TOPROL XL 100 MG PO (12:07)
--- NOTE | 2023-08-04 12:44 | CM ---
CM following re: discharge planning.
Discussed in Rounds, reviewed pt's chart, met with pt and pt's daughter Grecia at bedside.
Pt is an 83 year old male, admitted with primary dx of Urinary retention.
Pt was sleeping during interview, information obtained from daughter Grecia. Per daughter, pt has been living at [facility] since 2018, has 2 supportive children. pt ambulates with a cane.
Pt's daughter expressed her concerns regarding what kind of help pt can have at discharge. Options of next level of carte have been discussed: home with VN for Campbell care vs SNF if recommended by PT. Pt's daughter stated if home with VN she
requested [facility] and if SNF level of care recommended she preferred [facility].
PT and OT will evaluate the pt to determine a level of at at discharge.
PCP: Danyel Hicks
Pharmacy: [facility]
D/C plan: Plan A: home with [facility]. Plan B: [facility] SNF if recommended by PT/OT.
CM will follow with discharge plan updates as hospitalization progresses
--- NOTE | 2023-08-04 15:17 | W.PN.HOSP.TC ---
Today's Communication/Plan
-
Campbell catheter.
Monitor renal function.
Monitor volume status closely.
Empiric antibiotics pending urine culture
Out of ICU transfer.
Physical therapy evaluation.
Assessment / Plan
Assessment / Plan
IMPRESSION:
Altered mental status/toxic metabolic encephalopathy secondary to acute kidney injury
SHADY likely secondary to acute obstructive uropathy
Bilateral hydronephrosis
Abnormal urinalysis with concern for UTI.
Normal anion gap metabolic acidosis.
Marginally elevated lactic acid level.
Hyperkalemia.
Type II OK suspect secondary to demand ischemia in the settings of acute illness
Conditions prior to admission:
CAD status post single-vessel CABG.
Ischemic cardiomyopathy with most recent LVEF 50% 2021
IDDM.
Essential hypertension
Dyslipidemia.
Hypothyroidism on replacement.
PLAN:
Altered mental status mostly drowsiness
No focal findings on neurologic exam
Most likely toxic metabolic encephalopathy in the settings of acute kidney injury.
CT scan of the head with no acute abnormalities.
Monitor closely.
Acute kidney injury.
Obstructive uropathy/BPH with urinary retention.
CT scan findings consistent with
The prostate is enlarged measuring 6.9 cm
The urinary bladder is markedly distended measuring approximately 14 x 14 x 12 cm.
There is severe left-sided hydronephrosis and left hydroureter down to the level of the urinary bladder and moderate right hydronephrosis and right artery down to the level of the urinary bladder. Additionally, there is moderate-severe bilateral
perinephric edema.
Catheterized with 2 L of urine drained with Campbell catheter placed in ED on 08/03
Urology consultation appreciated
Renal function improved with urinary tract decompression
Initiated on Flomax and Proscar.
Plan most likely is to discharge home with Campbell catheter and urology follow-up.
Normal anion gap metabolic acidosis
Suspect multifactorial with SHADY, as well as reported prolonged period of diarrhea with recent antibiotic administration
Hyperkalemia in the settings of metabolic acidosis and CORNELIO patient
Hold ramipril
Improving with urinary tract decompression and diuresis
Abnormal urinalysis mostly with microhematuria.
Afebrile and hemodynamically stable
Reasonable concern for UTI.
Will cover with antibiotics status post single dose of aztreonam in ED, continue ceftriaxone pending urine and blood cultures.
Type II OK secondary to demand ischemia
CAD status post single-vessel CABG
Ischemic cardiomyopathy.
Most recent echocardiogram with LVEF of 50%
Troponin 23 upon presentation
Chest pain-free.
ECG suggestive of possible inferior ischemia.
Repeat echocardiogram in ED 08/03/2023: Mild left ventricular dilation with akinesis of septal, inferior and inferior lateral luna and severe hypokinesis of the remaining anterior/anterior lateral wall with severely reduced LVEF at 10-15%.
Discussed with cardiology
Troponin peaked at 23, trending down
Continue metoprolol and aspirin.
Continue Lipitor
If develops chest pain or cardiac markers, may require IV heparin and ischemic evaluation hopefully once renal function improved.
Volume overload with slightly increased work of breathing, minimal requirements for supplemental oxygen currently.� Noted with peripheral edema.
Hold for auto-diuresis with urinary tract decompression.� If increased oxygen requirements may need IV diuresis.
IDDM.
Reported erratic blood glucose upon presentation
Normoglycemic on BMP.
Given SHADY will reduce Lantus dose from 22 to 10 units at bedtime.� Hold AC NovoLog
Basal bolus protocol with serial Accu-Cheks
Hold SGLT2 inhibitor and metformin.
Noted mild elevation of serum hydroxybutyrate doubt DKA as no evidence of hyperglycemia and now improved metabolic acidosis.
Persistent diarrhea with recent antibiotic administration.
Stool negative for C. difficile
Hypothyroidism
TSH mildly elevated at 6.99
Continue levothyroxine at the preadmission dose
Repeat TSH over the next few weeks as outpatient.
Full code.
DVT prophylaxis mechanical
Anticipated Discharge: > 48 hours
Subjective/Interval History
-
Date of Service: August 04, 2023
Objective Data
-
Labs:
Laboratory Results
08/04/23
03:37
WBC 12.2 H
Hgb 12.6 L
Hct 37.7 L
Plt Count 257
Sodium 143
Potassium 4.8
Chloride 109 H
Carbon Dioxide 22
BUN 57 H
Creatinine 2.5 H
Glucose 151 H
Calcium 8.6
Total Bilirubin 0.7
AST 52
ALT 26
Alkaline Phosphatase 84
Vital Signs:
Vital Signs
Temp Pulse Resp BP Pulse Ox
98.2 F 81 30 133/69 94
08/04/23 11:57 08/04/23 12:07 08/04/23 09:45 08/04/23 12:07 08/04/23 07:45
I&O
08/03/23 08/04/23 08/05/23
06:59 06:59 06:59
Intake Total 960 / 960
Output Total 6150 / 6150
Balance -5190 / -5190
Physical Exam
-
General: Well Developed and No Apparent Distress
HEENT: Normocephalic, Atraumatic and Moist Mucous Membranes
Respiratory: Clear to Auscultation
Cardiac: Regular Rhythm and S1/S2; Negative Murmur, Rub or Gallop
GI: Soft, Nontender, Nondistended and Normal Bowel Sounds; Negative Organomegaly
Rectal: Deferred by Provider
Genito-urinary: Campbell
Musculoskeletal: No Clubbing, No Cyanosis and No Edema
Skin: Negative Rash
Neuro: Nonfocal/Grossly Intact
[2023-08-04 16:56] LABS: Glucose - Point of Care 241 mg/dl (70-99)
[2023-08-04] MEDS: STERILE WATER FOR INJECTION 10 ML IV (17:36)
[2023-08-04] MEDS: ROCEPHIN 1000 MG IV (17:36)
--- NOTE | 2023-08-04 19:31 | TRANSFER ---
report given, tsf via wc on heart monitor to 2138 with all belongings.
[2023-08-04 21:38] LABS: Glucose - Point of Care 272 mg/dl (70-99)
[2023-08-04] MEDS: LANTUS 0.220000000000000001 UNITS SC (22:21)
[2023-08-05] VITALS (8 sets, daily range): BP systolic 104–156; BP diastolic 54–82; PULSE 78; BMI 28.4
[2023-08-05 04:57] LABS: % Basophils 0.2 % (0-2); % Eosinophils 0.4 % (0-6); % Immature Granulocytes 0.4 % (0-0.5); % Lymphocytes 6.6 % (20.5-51.1); % Monocytes 10.6 % (1.7-9.3); % Neutrophils 81.8 % (42.2-75.2); Absolute Eosinophils 0.1 10^3/uL (0-0.7); Absolute Immature Granulocytes 0.1 10^3/uL (0-0.05); Absolute Lymphocytes 0.8 10^3/uL (1.2-3.4); Absolute Monocytes 1.3 10^3/uL (0.1-0.6); Absolute Neutrophils 10.1 10^3/uL (1.4-6.5); Hematocrit 37.1 % (39.0-52.0); Mean Corp Hgb Conc. 32.3 g/dL (33.0-37.0); Mean Corpuscular Hgb 29.9 pg (27.0-31.0); Mean Corpuscular Volume 92.3 fL (80.0-94.0); Mean Platelet Volume 10.4 fL (7.4-10.4); Nucleated Red Blood Cells % 0 % (-); Platelet Count 247 10^3/uL (130-400); Red Blood Cell Count 4.02 10^6/uL (4.70-6.10); White Blood Cell Count 12.3 10^3/uL (4.8-10.8)
[2023-08-05 05:23] LABS: Blood Urea Nitrogen 46 mg/dl (9-20); Calcium 8.7 mg/dl (8.4-10.2); Carbon Dioxide 19 mmol/L (22-30); Chloride 107 mmol/L (98-107); Estimated Creatinine Clearance 43 ml/min; Glucose 187 mg/dl (70-99); Potassium 4.8 mmol/L (3.5-5.1); Sodium 141 mmol/L (135-145); eGFR 53.84
[2023-08-05 08:27] LABS: Glucose - Point of Care 157 mg/dl (70-99)
--- NOTE | 2023-08-05 08:56 | W.PN.URO.CBU ---
Today's Communication / Plan
-
Home with Champagne
Assessment / Plan
-
bph
urinary retention
ARF- secondary to obstruction: resolving
cr declining
ucx negative
Continue flomax and proscar
eventual plan for discharge with champagne
will follow
Diagnosis
-
Date of Service: August 05, 2023
-
Patient Diagnosis:
urinary retention
bph
ARF: resolving
Subjective
-
No significant catheter bother
Objective
-
Vital Signs
Temp Pulse Resp BP Pulse Ox
97.8 F 78 16 156/82 96
08/05/23 07:30 08/05/23 07:30 08/05/23 07:30 08/05/23 07:30 08/05/23 07:30
Intake and Output
08/04/23 08/05/23 08/06/23
06:59 06:59 06:59
Intake Total 960 / 960 1440 / 1440
Output Total 6150 / 6150 2900 / 2900
Balance -5190 / -5190 -1460 / -1460
Intake:
Oral fluids 960 / 960 1440 / 1440
Output:
Urine, Champagne 6150 / 6150 2900 / 2900
Laboratory Results
08/05/23 04:09
08/05/23 04:09
Review of Systems
-
Constitutional: No Symptoms
Respiratory: No Symptoms
Cardiac: No Symptoms
Abdomen/GI: No Symptoms
Neurological: No Symptoms
Physical Exam
-
General -well nourished, no acute distress
Abdomen - soft, non-tender, no CVAT
Genitalia - normal with Champagne draining clear urine
Skin - warm & dry with no rash
Neuro - AOx3, no motor deficits
--- NOTE | 2023-08-05 09:05 | W.PN.CD ---
Today's Communication / Plan
-
increase Toprol XL to 100mg bid
cath Tuesday for ischemic eval as long as Cr stable
Impression / Plan
-
Change MS, - multifactorial, metabolic abnormalities, and possible infection
- improving
Abnormal troponin:
-denies any CP or SOB
-trop 23- peak which was the first troponin
-possible Type II CA in setting of known coronary disease and acute underlying infectious illness vs late presentation after TType I Mi occurring prior to presentation to the hospital
- worsening of cardiomyopathy
- ASA 81mg daily. Holding on heparin
ICM, prior EF 50%, now down to 15%, with severe MR
-increase Toprol XL to 100mg bid
-cath Tuesday for ischemic eval
-holding on entresto, aldactone, SGLT2i with recent acute renal failure
-he is auto-diuresing with Campbell in place
Acute renal failure: improving
-obstructive
CAD hx CABG (details as noted):
-continue ASA, statin, and metoprolol
DM:
-management per primary team
HTN:
-on BB
-monitor with med adjustments
Physical Exam
Vital Signs/Labs
Vital Signs
Temp Pulse Resp BP Pulse Ox
97.8 F 78 16 156/82 96
08/05/23 07:30 08/05/23 07:30 08/05/23 07:30 08/05/23 07:30 08/05/23 07:30
08/04/23 08/05/23 08/06/23
06:59 06:59 06:59
Actual Weight 91.5 kg 89.811 kg
08/05/23 04:09
08/05/23 04:09
PT 14.3 Sec (11.4-14.6) 08/03/23 18:01
INR 1.11 08/03/23 18:01
APTT 25.3 Sec (23.4-35.0) 08/03/23 18:01
TSH 1.94 uIU/ml (0.47-4.68) 08/03/23 10:13
08/03/23
10:13
Uxb-C-Tvzdhbinglf Pept [id number]
LAB Results
08/03/23 08/03/23 08/04/23
10:55 18:01 03:37
Troponin I 23.500 H* 19.000 H* 17.000 H*
Physical Exam
Constitutional: No acute distress and Comfortable
EENT: Moist mucous membranes
Cardiovascular: Rhythm & rate is regular, Pedal edema present, JVD present and Systolic murmur present
Respiratory: Respiratory effort normal and Lungs clear to auscul.
GI: Soft and Distention absent
Neuro/Psych: AO x 3
Data Reviewed
-
Date of Service: August 05, 2023
EKG: Other (Tele: SR 70s)
Labs: Labs Reviewed by me
[2023-08-05] MEDS: NOVOLOG FLEXPEN-LOW RESISTANCE 1 UNITS SC ×2 (09:25→12:05)
[2023-08-05] MEDS: NOVOLOG FLEXPEN 10 UNITS SC ×3 (09:27→17:35)
[2023-08-05] MEDS: ASPIR LOW (ENTERIC COATED) 81 MG PO (09:28)
[2023-08-05] MEDS: FLOMAX 0.400000000000000022 MG PO (09:28)
[2023-08-05] MEDS: PROSCAR 5 MG PO (09:28)
[2023-08-05] MEDS: TOPROL XL 100 MG PO ×2 (10:11→20:07)
[2023-08-05 11:23] LABS: Glucose - Point of Care 194 mg/dl (70-99)
--- NOTE | 2023-08-05 12:00 | W.PN.NEPH.PH ---
Today's Communication / Plan
-
SHADY resolving
we will sign off
Assessment/Plan
-
Assessment
-SHADY
-bilateral hydronephrosis
-metabolic acidosis
-HTN
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
-elevated troponin
-HTN
-edema
Plan
-champagne
-creatinine down to 1.3 and grossly nonoliguric
-follow BMP
-trend troponin
-ok for cardiac cath as Cr < 1.5 (probably not until tuesday)
-we will sign off
-
-
Date of Service: August 05, 2023
CC / HPI / ROS
-
Chief Complaint:
SHADY
History of Present Illness:
Champagne in place for obstructive uropathy
SHADY/Cr down to 1.3
auto diuresing
BP stable
Troponin falling
Review of Systems:
no CP/SOB
non oliguric via champagne
Labs
-
Labs:
WBC 12.3 10^3/uL (4.8-10.8) H 08/05/23 04:09
RBC 4.02 10^6/uL (4.70-6.10) L 08/05/23 04:09
Hgb 12.0 g/dL (13.0-18.0) L 08/05/23 04:09
Hct 37.1 % (39.0-52.0) L 08/05/23 04:09
Plt Count 247 10^3/uL (130-400) 08/05/23 04:09
Sodium 141 mmol/L (135-145) 08/05/23 04:09
Potassium 4.8 mmol/L (3.5-5.1) 08/05/23 04:09
Chloride 107 mmol/L (98-107) 08/05/23 04:09
Carbon Dioxide 19 mmol/L (22-30) L 08/05/23 04:09
BUN 46 mg/dl (9-20) H 08/05/23 04:09
Creatinine 1.3 mg/dL (0.7-1.3) 08/05/23 04:09
eGFR 53.84 08/05/23 04:09
Glucose 187 mg/dl (70-99) H 08/05/23 04:09
Calcium 8.7 mg/dl (8.4-10.2) 08/05/23 04:09
Miw-F-Wmksprokhpi Pept 70874 pg/ml 08/03/23 10:13
Albumin 2.7 g/dl (3.5-5.0) L 08/04/23 03:37
Physical Exam
-
Vital Signs:
Vital Signs
Temp Pulse Resp BP Pulse Ox
97.8 F 78 16 156/82 96
08/05/23 07:30 08/05/23 10:11 08/05/23 07:30 08/05/23 10:11 08/05/23 08:10
Cardiovascular:: Regular rate and rhythm
Respiratory:: Bilateral: Coarse
Lung Excursion:: Normal
Abdomen:: Nontender and Soft
Bowel Sounds:: Normal
Extremity Edema:: None: Bilateral:
Champagne Catheter: Yes
[2023-08-05] MEDS: SYNTHROID 75 MCG PO (12:05)
[2023-08-05] MEDS: LIPITOR 40 MG PO (12:05)
--- NOTE | 2023-08-05 13:32 | PN.CDI ---
CDI
- -
CDI:
Physician Documentation Request
Admit Date: 08/03/23 15:15
Dear Doctor Cristofer,
Clinical Indicators:
Patient admitted with SHADY likely secondary to acute obstructive uropathy.
2/ H & P, 'Volume overload with slightly increased work of breathing, minimal requirements for supplemental oxygen currently. Noted with peripheral edema.'
2/7 Nephrology Consult, '-HFrEF 10% worse'
2/7 Lasix 20 mg IV x 1 dose.
BNP on admission:
08/03/23
10:13
Bpt-I-Ldaqazyuyee Pept [id number]
Based on the above, could you clarify in the progress notes, the appropriate diagnosis, if significant, that supports the above abnormalities and additional evaluation, monitoring and/or treatment rendered:
Acute HFrEF
Volume overload only
Other, please specify
Use of terms such as suspected, likely, concern for, or probable (associated with a specific diagnosis that is being evaluated, monitored, or treated as if it exists) are acceptable and can be coded in the inpatient setting, when documented at the
time of discharge.
Thank you,
HUNTER Landry RN
CDI Specialist
available via tiger text
Please use your independent medical judgment in providing your response.
--- NOTE | 2023-08-05 14:33 | W.PN.HOSP.TC ---
Today's Communication/Plan
-
Continue Campbell catheter
Monitor renal function
For ischemic evaluation on Tuesday.
Observe off antibiotics as urine cultures negative to date.
Readjust insulin regimen for hyperglycemia
Assessment / Plan
Assessment / Plan
IMPRESSION:
Altered mental status/toxic metabolic encephalopathy secondary to acute kidney injury
SHADY likely secondary to acute obstructive uropathy
Bilateral hydronephrosis
Abnormal urinalysis with concern for UTI.
Normal anion gap metabolic acidosis.
Marginally elevated lactic acid level.
Hyperkalemia.
Type II [place] suspect secondary to demand ischemia in the settings of acute illness
Conditions prior to admission:
CAD status post single-vessel CABG.
Ischemic cardiomyopathy with most recent LVEF 50% 2021
IDDM.
Essential hypertension
Dyslipidemia.
Hypothyroidism on replacement.
PLAN:
Altered mental status mostly drowsiness
No focal findings on neurologic exam
Most likely toxic metabolic encephalopathy in the settings of acute kidney injury.
CT scan of the head with no acute abnormalities.
Monitor closely.
Acute kidney injury.
Obstructive uropathy/BPH with urinary retention.
CT scan findings consistent with
The prostate is enlarged measuring 6.9 cm
The urinary bladder is markedly distended measuring approximately 14 x 14 x 12 cm.
There is severe left-sided hydronephrosis and left hydroureter down to the level of the urinary bladder and moderate right hydronephrosis and right artery down to the level of the urinary bladder. Additionally, there is moderate-severe bilateral
perinephric edema.
Catheterized with 2 L of urine drained with Campbell catheter placed in ED on 08/03
Urology consultation appreciated
Renal function improved with urinary tract decompression
Initiated on Flomax and Proscar.
Plan is to discharge home with Campbell catheter and urology follow-up.
Normal anion gap metabolic acidosis
Suspect multifactorial with SHADY, as well as reported prolonged period of diarrhea with recent antibiotic administration
Hyperkalemia in the settings of metabolic acidosis and CORNELIO patient
Hold ramipril
Improving with urinary tract decompression and diuresis
Abnormal urinalysis mostly with microhematuria.
Afebrile and hemodynamically stable
Urine cultures negative to date
Antibiotics/ceftriaxone discontinued on 08/05. Monitor closely while off antibiotics.
Type II KS secondary to demand ischemia
CAD status post single-vessel CABG
Ischemic cardiomyopathy.
Most recent echocardiogram with LVEF of 50%
Troponin 23 upon presentation
Chest pain-free.
ECG suggestive of possible inferior ischemia.
Repeat echocardiogram in ED 08/03/2023: Mild left ventricular dilation with akinesis of septal, inferior and inferior lateral luna and severe hypokinesis of the remaining anterior/anterior lateral wall with severely reduced LVEF at 10-15%.
Discussed with cardiology
Troponin peaked at 23, trending down
Continue metoprolol and aspirin.
Continue Lipitor
Plan for ischemic evaluation/left heart cath tentatively on Tuesday 08/08.
IDDM.
Hemoglobin A1c 9
Reported erratic blood glucose upon presentation
Normoglycemic on BMP.
Hold SGLT2 inhibitor and metformin given abnormal renal function
Noted mild elevation of serum hydroxybutyrate doubt DKA as no evidence of hyperglycemia and now improved metabolic acidosis.
Insulin requirements increased with recovery of renal function
Reinstate preadmission insulin regimen: Lantus 22 units at bedtime/NovoLog 10 units AC.
Continue basal bolus protocol with serial Accu-Cheks
Persistent diarrhea with recent antibiotic administration.
Stool negative for C. difficile
Hypothyroidism
TSH mildly elevated at 6.99
Continue levothyroxine at the preadmission dose
Repeat TSH over the next few weeks as outpatient.
Full code.
DVT prophylaxis mechanical
Anticipated Discharge: > 48 hours
Subjective/Interval History
-
Date of Service: August 05, 2023
Objective Data
-
Labs:
Laboratory Results
02/09/24
04:09
WBC 12.3 H
Hgb 12.0 L
Hct 37.1 L
Plt Count 247
Sodium 141
Potassium 4.8
Chloride 107
Carbon Dioxide 19 L
BUN 46 H
Creatinine 1.3
Glucose 187 H
Calcium 8.7
Vital Signs:
Vital Signs
Temp Pulse Resp BP Pulse Ox
97.7 F 81 16 127/55 93
08/05/23 11:15 08/05/23 11:15 08/05/23 11:15 08/05/23 11:15 08/05/23 11:15
I&O
08/04/23 08/05/23 08/06/23
06:59 06:59 06:59
Intake Total 960 / 960 1440 / 1440
Output Total 6150 / 6150 2900 / 2900
Balance -5190 / -5190 -1460 / -1460
Physical Exam
-
General: Well Developed and No Apparent Distress
HEENT: Normocephalic, Atraumatic and Moist Mucous Membranes
Respiratory: Clear to Auscultation
Cardiac: Regular Rhythm and S1/S2; Negative Murmur, Rub or Gallop
GI: Soft, Nontender, Nondistended and Normal Bowel Sounds; Negative Organomegaly
Rectal: Deferred by Provider
Genito-urinary: Campbell
Musculoskeletal: No Clubbing, No Cyanosis and No Edema
Skin: Negative Rash
Neuro: Awake, Alert, Oriented and Nonfocal/Grossly Intact
--- NOTE | 2023-08-05 15:42 | CM ---
Reviewed the chart notes. Per Cardiology, cath Tuesday for ischemic eval as long as Cr stable. PT recommending SNF/rehab. CM continues to be available to patient/family and is monitoring medical plan for needs at discharge.
Plan: Discharge plans will depend on the patient's progress. PT recommending SNF.
[2023-08-05 16:49] LABS: Glucose - Point of Care 148 mg/dl (70-99)
[2023-08-05] MEDS: NOVOLOG FLEXPEN-LOW RESISTANCE SC (17:37)
[2023-08-05 21:40] LABS: Glucose - Point of Care 111 mg/dl (70-99)
[2023-08-05] MEDS: LANTUS 0.220000000000000001 UNITS SC (21:56)
[2023-08-06 03:35] VITALS: BP 137/66
[2023-08-06 06:11] VITALS: BMI 28.1
[2023-08-06 07:09] VITALS: BP 159/77
[2023-08-06 07:14] LABS: % Basophils 0.1 % (0-2); % Eosinophils 1.1 % (0-6); % Immature Granulocytes 0.4 % (0-0.5); % Lymphocytes 6.8 % (20.5-51.1); % Monocytes 9.2 % (1.7-9.3); % Neutrophils 82.4 % (42.2-75.2); Absolute Eosinophils 0.1 10^3/uL (0-0.7); Absolute Lymphocytes 0.8 10^3/uL (1.2-3.4); Hematocrit 38.9 % (39.0-52.0); Hemoglobin 12.7 g/dL (13.0-18.0); Mean Corp Hgb Conc. 32.6 g/dL (33.0-37.0); Mean Corpuscular Hgb 30.3 pg (27.0-31.0); Mean Corpuscular Volume 92.8 fL (80.0-94.0); Mean Platelet Volume 10.3 fL (7.4-10.4); Nucleated Red Blood Cells % 0 % (-); Platelet Count 240 10^3/uL (130-400); Red Blood Cell Count 4.19 10^6/uL (4.70-6.10); Red Cell Dist. Width 13.9 % (11.5-14.5)
[2023-08-06 07:38] LABS: Blood Urea Nitrogen 28 mg/dl (9-20); Calcium 8.3 mg/dl (8.4-10.2); Carbon Dioxide 25 mmol/L (22-30); Chloride 109 mmol/L (98-107); Estimated Creatinine Clearance 70 ml/min; Glucose 122 mg/dl (70-99); Potassium 3.9 mmol/L (3.5-5.1); Sodium 140 mmol/L (135-145); eGFR > 60.00
[2023-08-06 08:03] LABS: Glucose - Point of Care 127 mg/dl (70-99)
[2023-08-06] MEDS: NOVOLOG FLEXPEN 10 UNITS SC ×2 (08:42→12:27)
[2023-08-06] MEDS: NOVOLOG FLEXPEN-LOW RESISTANCE SC ×3 (08:42→16:33)
[2023-08-06] MEDS: FLOMAX 0.400000000000000022 MG PO (08:43)
[2023-08-06] MEDS: PROSCAR 5 MG PO (08:43)
[2023-08-06] MEDS: ASPIR LOW (ENTERIC COATED) 81 MG PO (08:43)
[2023-08-06] MEDS: TOPROL XL 100 MG PO ×2 (08:43→20:03)
--- NOTE | 2023-08-06 09:12 | W.PN.HOSP.TC ---
Today's Communication/Plan
-
tentative heart cath on Tuesday
Assessment / Plan
Assessment / Plan
IMPRESSION:
Altered mental status/toxic metabolic encephalopathy secondary to acute kidney injury
Ur cx neg
SHADY likely secondary to acute obstructive uropathy
better BUN/Creat 64/4.7--->28/0.8
Bilateral hydronephrosis
Abnormal urinalysis with concern for UTI at time of admission.
Rocephin stopped
Normal anion gap metabolic acidosis.
Marginally elevated lactic acid level.
resolved 2.5-->1.4
Hyperkalemia.
resolved
Type II [place] suspect secondary to demand ischemia in the settings of acute illness
Conditions prior to admission:
CAD status post single-vessel CABG.
Ischemic cardiomyopathy with prior LVEF 50% 2021
Echo 08/03/23: Mild left ventricular dilation with akinesis of the septal, inferior and
�inferolateral luna and severe hypokinesis of the remaining
�anterior/anterolateral wall with severely reduced left ventricular systolic
�function. Left ventricular ejection fraction is 10-15% by visual assessment.�
�Diastolic function indeterminate.
�Normal right ventricular size. Normal right ventricular systolic function.
�Moderate left atrial dilation.
�Mild mitral annular calcification.� Mitral sclerosis without stenosis.� Severe
�mitral valve regurgitation.
�Calcified, trileaflet aortic valve with restricted motion of the right coronary
�leaflet. Aortic sclerosis without stenosis. Trace aortic regurgitation.
�The IVC was not visualized.
�At least moderate pulmonary hypertension.
�
IDDM.
a1c 9.0%
Essential hypertension
Dyslipidemia.
Hypothyroidism on replacement.
PLAN:
Altered mental status mostly drowsiness
No focal findings on neurologic exam
Most likely toxic metabolic encephalopathy in the settings of acute kidney injury.
CT scan of the head with no acute abnormalities.
Monitor closely.
atelectatic rales due to limited activity
add incentive spirometry. Recheck CXR. continue PT/OT
Acute kidney injury.
Obstructive uropathy/BPH with urinary retention.
CT scan findings consistent with
The prostate is enlarged measuring 6.9 cm
The urinary bladder is markedly distended measuring approximately 14 x 14 x 12 cm.
There is severe left-sided hydronephrosis and left hydroureter down to the level of the urinary bladder and moderate right hydronephrosis and right artery down to the level of the urinary bladder. Additionally, there is moderate-severe bilateral
perinephric edema.
Catheterized with 2 L of urine drained with Campbell catheter placed in ED on 08/03
Urology consultation appreciated
Renal function improved with urinary tract decompression
Initiated on Flomax and Proscar.
Plan is to discharge home with Campbell catheter and urology follow-up. Input of Urology appreciated
Normal anion gap metabolic acidosis
Suspect multifactorial with SHADY, as well as reported prolonged period of diarrhea with recent antibiotic administration
Hyperkalemia in the settings of metabolic acidosis and CORNELIO patient
Hold ramipril
Improving with urinary tract decompression and diuresis
Abnormal urinalysis mostly with microhematuria.
Afebrile and hemodynamically stable
Urine cultures negative to date
Antibiotics/ceftriaxone discontinued on 08/05. Monitor closely while off antibiotics.
Type II VT secondary to demand ischemia
CAD status post single-vessel CABG
Ischemic cardiomyopathy.
Most recent echocardiogram with LVEF of 50%
Troponin 23 upon presentation
Chest pain-free.
ECG suggestive of possible inferior ischemia.
Repeat echocardiogram in ED 08/03/2023: Mild left ventricular dilation with akinesis of septal, inferior and inferior lateral luna and severe hypokinesis of the remaining anterior/anterior lateral wall with severely reduced LVEF at 10-15%.
Discussed with cardiology
Troponin peaked at 23, trending down
Continue metoprolol and aspirin.
Continue Lipitor
Plan for ischemic evaluation/left heart cath tentatively on Tuesday 08/08.
IDDM.
Hemoglobin A1c 9
Reported erratic blood glucose upon presentation
Normoglycemic on BMP.
Hold SGLT2 inhibitor and metformin given abnormal renal function
Noted mild elevation of serum hydroxybutyrate doubt DKA as no evidence of hyperglycemia and now improved metabolic acidosis.
Insulin requirements increased with recovery of renal function
Reinstate preadmission insulin regimen: Lantus 22 units at bedtime/NovoLog 10 units AC.
Continue basal bolus protocol with serial Accu-Cheks
glu 111-194 range
Persistent diarrhea with recent antibiotic administration.
Stool negative for C. difficile
Hypothyroidism
TSH mildly elevated at 6.99
Continue levothyroxine at the preadmission dose
Repeat TSH over the next few weeks as outpatient.
Full code.
DVT prophylaxis mechanical
reviewed with dgt in room
Anticipated Discharge: > 48 hours
Subjective/Interval History
-
Date of Service: August 06, 2023
Pt is awake and as per dgt, mentation is at baseline
Objective Data
-
Labs:
Laboratory Results
08/06/23
06:48
WBC 11.0 H
Hgb 12.7 L
Hct 38.9 L
Plt Count 240
Sodium 140
Potassium 3.9
Chloride 109 H
Carbon Dioxide 25
BUN 28 H
Creatinine 0.8
Glucose 122 H
Calcium 8.3 L
Vital Signs:
Vital Signs
Temp Pulse Resp BP Pulse Ox
97.5 F 81 16 159/77 95
08/06/23 07:09 08/06/23 07:09 08/06/23 07:09 08/06/23 07:09 08/06/23 07:09
I&O
08/05/23 08/06/23 08/07/23
06:59 06:59 06:59
Intake Total 1440 / 1440 940 / 940
Output Total 2900 / 2900 2400 / 2400
Balance -1460 / -1460 -1460 / -1460
Review of Systems
-
History Source: Patient and Family (dgt in room)
Constitutional: Denies Fever
Respiratory: Reports No Symptoms; Denies Trouble Breathing
Cardiac: Reports No Symptoms; Denies Chest Pain
Genitourinary: Denies Dysuria
Physical Exam
-
General: Well Developed and No Apparent Distress
HEENT: Normocephalic, Atraumatic and Moist Mucous Membranes
Respiratory: Rales (bibasilar atelectatic rales)
Cardiac: Regular Rhythm and S1/S2; Negative Murmur, Rub or Gallop
GI: Soft, Nontender, Nondistended and Normal Bowel Sounds; Negative Organomegaly
Rectal: Deferred by Provider
Genito-urinary: Campbell
Musculoskeletal: No Clubbing, No Cyanosis and No Edema
Skin: Rash (chronic eythema bilaterla LE)
Neuro: Awake, Alert, Oriented and Nonfocal/Grossly Intact
--- NOTE | 2023-08-06 09:53 | W.PN.URO.CBU ---
Today's Communication / Plan
-
keep champagne teach champagne and leg bag care
Assessment / Plan
-
bph
urinary retention
ARF- secondary to obstruction: resolving
cr declining
ucx negative
Continue flomax and proscar
eventual plan for discharge with champagne
will follow
Diagnosis
-
Date of Service: August 06, 2023
-
Patient Diagnosis:
Post Op Day:
Patient Diagnosis:
urinary retention
bph
ARF: resolving
Subjective
-
sob
Objective
-
Vital Signs
Temp Pulse Resp BP Pulse Ox
97.5 F 81 16 159/77 95
08/06/23 07:09 08/06/23 07:09 08/06/23 07:09 08/06/23 07:09 08/06/23 07:09
Intake and Output
08/05/23 08/06/23 08/07/23
06:59 06:59 06:59
Intake Total 1440 / 1440 940 / 940
Output Total 2900 / 2900 2400 / 2400
Balance -1460 / -1460 -1460 / -1460
Intake:
Oral fluids 1440 / 1440 940 / 940
Output:
Urine, Champagne 2900 / 2900 2400 / 2400
Laboratory Results
08/06/23 06:48
08/06/23 06:48
Review of Systems
-
: Difficulty Voiding
Physical Exam
-
General - well developed, well nourished, no acute distress
Chest - clear bilaterally
Abdomen - soft, non-tender, positive bowel sounds, no CVAT, no incisional pain or distention
Genitalia - normal
Rectal - normal
Skin - warm & dry with no rash
Neuro - AOx3, no motor deficits
Extremities - no clubbing, no cyanosis, no edema
Incision - clean, dry
Dressing - clean, dry, intact
Care Review
Data Reviewed
Discussed with: Nursing and Family
[2023-08-06 11:10] VITALS: BP 120/60
--- NOTE | 2023-08-06 11:49 | W.PN.CD ---
Today's Communication / Plan
-
cont Toprol XL
auto-diuresing with Campbell in place
cath Tuesday
Impression / Plan
-
Change MS, - multifactorial, metabolic abnormalities, and possible infection
- improving
Abnormal troponin:
-denies any CP or SOB
-trop 23- peak which was the first troponin
-possible Type II OH in setting of known coronary disease and acute underlying infectious illness vs late presentation after TType I Mi occurring prior to presentation to the hospital
- worsening of cardiomyopathy
- ASA 81mg daily. Holding on heparin
ICM, prior EF 50%, now down to 15%, with severe MR
-increased Toprol XL to 100mg bid 08/05
-cath Tuesday for ischemic eval
-holding on entresto, aldactone, SGLT2i with recent acute renal failure
-he is auto-diuresing with Campbell in place
Acute renal failure: improving
-obstructive
CAD hx CABG (details as noted):
-continue ASA, statin, and metoprolol
DM:
-management per primary team
HTN:
-on BB
-monitor with med adjustments
Physical Exam
Vital Signs/Labs
Vital Signs
Temp Pulse Resp BP Pulse Ox
97.5 F 81 16 159/77 95
08/06/23 07:09 08/06/23 07:09 08/06/23 07:09 08/06/23 07:09 08/06/23 07:09
08/05/23 08/06/23 08/07/23
06:59 06:59 06:59
Actual Weight 89.811 kg 88.904 kg
08/06/23 06:48
08/06/23 06:48
PT 14.3 Sec (11.4-14.6) 08/03/23 18:01
INR 1.11 08/03/23 18:01
APTT 25.3 Sec (23.4-35.0) 08/03/23 18:01
TSH 1.94 uIU/ml (0.47-4.68) 08/03/23 10:13
08/03/23
10:13
Jyk-[id number]-[id number] Pept [id number]
LAB Results
08/03/23 08/04/23
18: 03:37
Troponin I 19.000 H* 17.000 H*
Physical Exam
Constitutional: No acute distress and Comfortable
EENT: Moist mucous membranes
Cardiovascular: Rhythm & rate is regular, Pedal edema is absent, JVD present and Systolic murmur present
Respiratory: Respiratory effort normal and Lungs clear to auscul.
GI: Soft and Distention absent
Neuro/Psych: Oriented
Data Reviewed
-
Date of Service: August 06, 2023
EKG: Other (Tele: SR [id number])
Labs: Labs Reviewed by me
[2023-08-06 11:56] LABS: Glucose - Point of Care 105 mg/dl (70-99)
[2023-08-06] MEDS: SYNTHROID 75 MCG PO (12:26)
[2023-08-06] MEDS: LIPITOR 40 MG PO (12:26)
--- NOTE | 2023-08-06 12:27 | W.PN.NEPH.PH ---
Today's Communication / Plan
-
sign off
Assessment/Plan
-
Assessment
-SHADY
-bilateral hydronephrosis
-metabolic acidosis
-HTN
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
-elevated troponin
-HTN
-edema
Plan
-SHADY due to obstructive uropathy
-champagne
-creatinine down to 1.3 and grossly nonoliguric
-follow BMP
-trend troponin
-ok for cardiac cath as Cr < 1.5 (probably not until tuesday)
-we will sign off
-
-
Date of Service: August 06, 2023
CC / HPI / ROS
-
Chief Complaint:
SHADY
History of Present Illness:
Champagne in place for obstructive uropathy
SHADY/Cr down to 1.3
auto diuresing
BP stable
Troponin falling
Review of Systems:
no CP/SOB
non oliguric via champagne
Labs
-
Labs:
WBC 11.0 10^3/uL (4.8-10.8) H 08/06/23 06:48
RBC 4.19 10^6/uL (4.70-6.10) L 08/06/23 06:48
Hgb 12.7 g/dL (13.0-18.0) L 08/06/23 06:48
Hct 38.9 % (39.0-52.0) L 08/06/23 06:48
Plt Count 240 10^3/uL (130-400) 08/06/23 06:48
Sodium 140 mmol/L (135-145) 08/06/23 06:48
Potassium 3.9 mmol/L (3.5-5.1) 08/06/23 06:48
Chloride 109 mmol/L (98-107) H 08/06/23 06:48
Carbon Dioxide 25 mmol/L (22-30) 08/06/23 06:48
BUN 28 mg/dl (9-20) H 08/06/23 06:48
Creatinine 0.8 mg/dL (0.7-1.3) 08/06/23 06:48
eGFR > 60.00 08/06/23 06:48
Glucose 122 mg/dl (70-99) H 08/06/23 06:48
Calcium 8.3 mg/dl (8.4-10.2) L 08/06/23 06:48
Kqq-[id number]-Xtpeeorbcqi Pept 65259 pg/ml 08/03/23 10:13
Albumin 2.7 g/dl (3.5-5.0) L 08/04/23 03:37
Physical Exam
-
Vital Signs:
Vital Signs
Temp Pulse Resp BP Pulse Ox
97.5 F 81 16 159/77 95
08/06/23 07:09 08/06/23 07:09 08/06/23 07:09 08/06/23 07:09 08/06/23 07:09
Cardiovascular:: Regular rate and rhythm
Respiratory:: Bilateral: CTA
Lung Excursion:: Normal
Abdomen:: Nontender and Soft
Bowel Sounds:: Normal
Extremity Edema:: None: Bilateral:
--- NOTE | 2023-08-06 14:25 | CM ---
CM following re: discharge planning.
Reviewed pt's chart, met with pt. Pt's daughter, son in law, pt's son and grandchildren at bedside.
CM consulted to check the garcia of following medications.
Cost Entresto 24-26 mg BID - 30 day supply - $38.70; 90 day supply - $100.00
Cost Jardiance 10 mg Daily - 30 day supply $38.70; 90 day supply $100.00
Farxiga: not covered by insurance
Both pt and his family are aware and they stated they will discuss it with MD team.
PT and OT evaluations noted - SNF level, of care recommended. Both pt and his family requested [facility]. A referral to [facility] made.
D/C plan: [facility] when medically stable.
CM will follow with discharge plan updates as hospitalization progresses
[2023-08-06 15:21] VITALS: BP 126/68
[2023-08-06 16:27] LABS: Glucose - Point of Care 99 mg/dl (70-99)
[2023-08-06] MEDS: NOVOLOG FLEXPEN 6 UNITS SC (17:09)
[2023-08-06] MEDS: NOVOLOG FLEXPEN SC (17:09)
[2023-08-06 19:30] VITALS: BP 119/58
[2023-08-06 21:36] LABS: Glucose - Point of Care 149 mg/dl (70-99)
[2023-08-06] MEDS: LANTUS 0.220000000000000001 UNITS SC (21:42)
[2023-08-06 23:42] VITALS: BP 125/63
[2023-08-07 03:50] VITALS: BP 134/79
[2023-08-07 06:00] VITALS: BMI 27.9
[2023-08-07 07:20] VITALS: BP 142/75
[2023-08-07 08:02] LABS: Glucose - Point of Care 114 mg/dl (70-99)
[2023-08-07] MEDS: NOVOLOG FLEXPEN-LOW RESISTANCE SC (08:57)
[2023-08-07] MEDS: NOVOLOG FLEXPEN 10 UNITS SC (08:58)
--- NOTE | 2023-08-07 09:09 | W.PN.HOSP.TC ---
Today's Communication/Plan
-
heart cath tomorrow
adjust insulin, start IVF in AM
recheck labs in AM
Wound Care consult for heels
heel protectors was requested to nursing
Assessment / Plan
Assessment / Plan
IMPRESSION:
Altered mental status/toxic metabolic encephalopathy secondary to acute kidney injury
Ur cx neg
SHADY likely secondary to acute obstructive uropathy
better BUN/Creat 64/4.7--->28/0.8
Wt (98 kg initial/?accuracy) 91.5-->88.3kg
Bilateral hydronephrosis
Abnormal urinalysis with concern for UTI at time of admission.
Rocephin stopped
Normal anion gap metabolic acidosis.
Marginally elevated lactic acid level.
resolved 2.5-->1.4
Hyperkalemia.
resolved
Type II UT suspect secondary to demand ischemia in the settings of acute illness
Conditions prior to admission:
CAD status post single-vessel CABG.
Ischemic cardiomyopathy with prior LVEF 50% 2021
Echo 08/03/23: Mild left ventricular dilation with akinesis of the septal, inferior and
�inferolateral luna and severe hypokinesis of the remaining
�anterior/anterolateral wall with severely reduced left ventricular systolic
�function. Left ventricular ejection fraction is 10-15% by visual assessment.�
�Diastolic function indeterminate.
�Normal right ventricular size. Normal right ventricular systolic function.
�Moderate left atrial dilation.
�Mild mitral annular calcification.� Mitral sclerosis without stenosis.� Severe
�mitral valve regurgitation.
�Calcified, trileaflet aortic valve with restricted motion of the right coronary
�leaflet. Aortic sclerosis without stenosis. Trace aortic regurgitation.
�The IVC was not visualized.
�At least moderate pulmonary hypertension.
�
IDDM.
a1c 9.0%
Essential hypertension
Dyslipidemia.
Hypothyroidism on replacement.
Bilateral heels small pressure sores. Appear chronic (POA most likely)
requested nurse place pressure protectors and requested wound care consult
PLAN:
Altered mental status mostly drowsiness
No focal findings on neurologic exam
Most likely toxic metabolic encephalopathy in the settings of acute kidney injury.
CT scan of the head with no acute abnormalities.
Monitor closely.
atelectatic rales due to limited activity
add incentive spirometry. Recheck CXR: Poor inspiratory effort. Low lung volumes. Slight worsening aeration of the lung bases.
continue PT/OT
Acute kidney injury.
Obstructive uropathy/BPH with urinary retention.
CT scan findings consistent with
The prostate is enlarged measuring 6.9 cm
The urinary bladder is markedly distended measuring approximately 14 x 14 x 12 cm.
There is severe left-sided hydronephrosis and left hydroureter down to the level of the urinary bladder and moderate right hydronephrosis and right artery down to the level of the urinary bladder. Additionally, there is moderate-severe bilateral
perinephric edema.
Catheterized with 2 L of urine drained with Campbell catheter placed in ED on 08/03
Urology consultation appreciated
Renal function improved with urinary tract decompression
Initiated on Flomax and Proscar.
Plan is to discharge home with Campbell catheter and urology follow-up. Input of Urology appreciated
Normal anion gap metabolic acidosis
Suspect multifactorial with SHADY, as well as reported prolonged period of diarrhea with recent antibiotic administration
Hyperkalemia in the settings of metabolic acidosis and CORNELIO patient
Hold ramipril
Improving with urinary tract decompression and diuresis
Abnormal urinalysis mostly with microhematuria.
Afebrile and hemodynamically stable
Urine cultures negative to date
Antibiotics/ceftriaxone discontinued on 08/05. Monitor closely while off antibiotics.
Type II UT secondary to demand ischemia
CAD status post single-vessel CABG
Ischemic cardiomyopathy.
Most recent echocardiogram with LVEF of 50%
Troponin 23 upon presentation
Chest pain-free.
ECG suggestive of possible inferior ischemia.
Repeat echocardiogram in ED 08/03/2023: Mild left ventricular dilation with akinesis of septal, inferior and inferior lateral luna and severe hypokinesis of the remaining anterior/anterior lateral wall with severely reduced LVEF at 10-15%.
Discussed with cardiology
Troponin peaked at 23, trending down
Continue metoprolol and aspirin.
Continue Lipitor
Plan for ischemic evaluation/left heart cath tentatively on Tuesday 08/08.
IDDM.
Hemoglobin A1c 9
Reported erratic blood glucose upon presentation
Normoglycemic on BMP.
Hold SGLT2 inhibitor and metformin given abnormal renal function with planned heart cath
Noted mild elevation of serum hydroxybutyrate doubt DKA as no evidence of hyperglycemia and now improved metabolic acidosis.
Insulin requirements increased with recovery of renal function
Reinstate preadmission insulin regimen: Lantus 22 units at bedtime/will decrease NovoLog to 6 units AC.
Continue basal bolus protocol with serial Accu-Cheks
glu 99-149 range. decreased premeal insulin dosing
Will lower Lantus dose tonight, as having cath tomorrow and start IV with Dextrose in AM to avoid hypoglycemia
Persistent diarrhea with recent antibiotic administration.
Stool negative for C. difficile
Hypothyroidism
TSH mildly elevated at 6.99
Continue levothyroxine at the preadmission dose
Repeat TSH over the next few weeks as outpatient.
Full code.
DVT prophylaxis mechanical
reviewed with dgt in room 08/06
Anticipated Discharge: 24 - 48 hours
Subjective/Interval History
-
Date of Service: August 07, 2023
Awake, alert. Discussed planned heart cath
Objective Data
-
Vital Signs:
Vital Signs
Temp Pulse Resp BP Pulse Ox
97.6 F 70 27 142/75 97
08/07/23 07:20 08/07/23 07:20 08/07/23 07:20 08/07/23 07:20 08/07/23 07:20
I&O
08/06/23 08/07/23 08/08/23
06:59 06:59 06:59
Intake Total 940 / 940 1770 / 1770
Output Total 2400 / 2400 3000 / 3000
Balance -1460 / -1460 -1230 / -1230
Review of Systems
-
History Source: Patient and Coordinated Provider (reviewed with nursing, Lulu RN in room)
Constitutional: Denies Fever
Respiratory: Reports No Symptoms; Denies Trouble Breathing
Cardiac: Reports No Symptoms; Denies Chest Pain
Genitourinary: Denies Dysuria
Physical Exam
-
General: Well Developed and No Apparent Distress
HEENT: Normocephalic, Atraumatic and Moist Mucous Membranes
Respiratory: Rales (minimal bibasilar atelectatic rales, less pronounced (he states he has been using the incentive spirometer regularly)); Negative Wheezes or Rhonchi
Cardiac: Regular Rhythm and S1/S2; Negative Murmur, Rub or Gallop
GI: Soft, Nontender, Nondistended and Normal Bowel Sounds; Negative Organomegaly
Genito-urinary: Campbell
Musculoskeletal: No Clubbing, No Cyanosis, No Edema and Other (bilater heels with small pressure sores)
Skin: Rash (chronic eythema bilaterla LE)
Neuro: Awake, Alert, Oriented and Nonfocal/Grossly Intact
[2023-08-07] MEDS: FLOMAX 0.400000000000000022 MG PO (09:17)
[2023-08-07] MEDS: TOPROL XL 100 MG PO ×2 (09:18→20:46)
[2023-08-07] MEDS: ASPIR LOW (ENTERIC COATED) 81 MG PO (09:19)
[2023-08-07] MEDS: PROSCAR 5 MG PO (09:22)
[2023-08-07 10:49] LABS: Blood Urea Nitrogen 22 mg/dl (9-20); Calcium 8.1 mg/dl (8.4-10.2); Carbon Dioxide 28 mmol/L (22-30); Chloride 103 mmol/L (98-107); Estimated Creatinine Clearance 80 ml/min; Glucose 205 mg/dl (70-99); Potassium 3.9 mmol/L (3.5-5.1); Sodium 138 mmol/L (135-145); eGFR > 60.00
[2023-08-07 11:12] LABS: Glucose - Point of Care 190 mg/dl (70-99)
--- NOTE | 2023-08-07 11:23 | W.PN.CD ---
Today's Communication / Plan
-
plan for cath tomorrow
cont ASA and Toprol XL
Impression / Plan
-
Change MS, - multifactorial, metabolic abnormalities, and possible infection
- improving
Abnormal troponin:
-denies any CP or SOB
-trop 23- peak which was the first troponin
-possible Type II NJ in setting of known coronary disease and acute underlying infectious illness vs late presentation after Type I NJ occurring prior to presentation to the hospital
- worsening of cardiomyopathy
- ASA 81mg daily. Holding on heparin
ICM, prior EF 50%, now down to 15%, with severe MR
-increased Toprol XL to 100mg bid 08/05
-cath Tuesday for ischemic eval
-to assesss for entresto, aldactone, SGLT2i post cath as long as Cr stable
-he is auto-diuresing with Campbell in place
Acute renal failure: resolved
-obstructive
CAD hx CABG (details as noted):
-continue ASA, statin, and metoprolol
DM:
-management per primary team
HTN:
-on BB
-monitor with med adjustments
Physical Exam
Vital Signs/Labs
Vital Signs
Temp Pulse Resp BP Pulse Ox
97.6 F 70 27 142/75 97
08/07/23 07:20 08/07/23 09:18 08/07/23 07:20 08/07/23 09:18 08/07/23 07:20
08/06/23 08/07/23 08/08/23
06:59 06:59 06:59
Actual Weight 88.904 kg 88.269 kg
08/06/23 06:48
08/07/23 10:27
PT 14.3 Sec (11.4-14.6) 08/03/23 18:01
INR 1.11 08/03/23 18:01
APTT 25.3 Sec (23.4-35.0) 08/03/23 18:01
TSH 1.94 uIU/ml (0.47-4.68) 08/03/23 10:13
08/03/23
10:13
Ygc-F-Dkzxnvrraxk Pept 76930
Physical Exam
Constitutional: No acute distress and Comfortable
EENT: Moist mucous membranes
Cardiovascular: Rhythm & rate is regular, Pedal edema present, JVD present and Systolic murmur present
Respiratory: Respiratory effort normal and Lungs clear to auscul.
GI: Soft and Distention absent
Neuro/Psych: AO x 3
Data Reviewed
-
Date of Service: August 07, 2023
EKG: Other (Tele: SR 70s, PVC's)
Labs: Labs Reviewed by me
[2023-08-07 11:31] VITALS: BP 135/69
[2023-08-07] MEDS: NOVOLOG FLEXPEN-LOW RESISTANCE 1 UNITS SC (11:52)
[2023-08-07] MEDS: NOVOLOG FLEXPEN 6 UNITS SC ×2 (11:54→16:18)
[2023-08-07] MEDS: SYNTHROID 75 MCG PO (13:16)
[2023-08-07] MEDS: LIPITOR 40 MG PO (13:16)
--- NOTE | 2023-08-07 14:21 | CM ---
Per Sh[facility] referral for SNF still pending review. CM to follow up tomorrow.
[2023-08-07 15:00] VITALS: BP 126/65
[2023-08-07 15:58] LABS: Glucose - Point of Care 229 mg/dl (70-99)
[2023-08-07] MEDS: NOVOLOG FLEXPEN-LOW RESISTANCE 2 UNITS SC (16:18)
[2023-08-07 19:24] VITALS: BP 135/71
[2023-08-07] MEDS: LANTUS 0.119999999999999996 UNITS SC (21:43)
[2023-08-07 21:48] LABS: Glucose - Point of Care 176 mg/dl (70-99)
[2023-08-07 23:10] VITALS: BP 137/53
[2023-08-08] VITALS (11 sets, daily range): BP systolic 107–137; BP diastolic 55–76; BMI 27.6
--- NOTE | 2023-08-08 01:00 | PTCARENOTE ---
Patient appeared SOB and pulse ox 88% RAIvonne BONE notified; patient placed on 2L oxygen per order; will continue to closely monitor.
--- NOTE | 2023-08-08 01:15 | PTCARENOTE ---
Patient had episode of tachycardia (HR 130s); rhythm irregular-questionable Afib; EKG obtained; House [facility] GATHERER notified with results.
[2023-08-08 05:12] LABS: % Eosinophils 0.5 % (0-6); % Immature Granulocytes 0.7 % (0-0.5); % Lymphocytes 4.1 % (20.5-51.1); % Monocytes 7.7 % (1.7-9.3); Absolute Immature Granulocytes 0.1 10^3/uL (0-0.05); Absolute Lymphocytes 0.4 10^3/uL (1.2-3.4); Absolute Monocytes 0.7 10^3/uL (0.1-0.6); Absolute Neutrophils 7.7 10^3/uL (1.4-6.5); Hematocrit 38.8 % (39.0-52.0); Hemoglobin 12.6 g/dL (13.0-18.0); Mean Corp Hgb Conc. 32.5 g/dL (33.0-37.0); Mean Corpuscular Hgb 30.1 pg (27.0-31.0); Mean Corpuscular Volume 92.6 fL (80.0-94.0); Mean Platelet Volume 10.8 fL (7.4-10.4); Nucleated Red Blood Cells % 0 % (-); Platelet Count 219 10^3/uL (130-400); Red Blood Cell Count 4.19 10^6/uL (4.70-6.10); Red Cell Dist. Width 13.8 % (11.5-14.5); White Blood Cell Count 8.8 10^3/uL (4.8-10.8)
[2023-08-08 05:35] LABS: Blood Urea Nitrogen 21 mg/dl (9-20); Calcium 8.2 mg/dl (8.4-10.2); Carbon Dioxide 28 mmol/L (22-30); Chloride 104 mmol/L (98-107); Estimated Creatinine Clearance 93 ml/min; Glucose 166 mg/dl (70-99); Sodium 139 mmol/L (135-145); eGFR > 60.00
[2023-08-08 05:57] LABS: Glucose - Point of Care 249 mg/dl (70-99)
[2023-08-08] MEDS: NOVOLOG FLEXPEN SC (05:58)
[2023-08-08] MEDS: NOVOLOG FLEXPEN-LOW RESISTANCE 2 UNITS SC (05:59)
[2023-08-08] MEDS: FLOMAX 0.400000000000000022 MG PO (09:21)
[2023-08-08] MEDS: PEPCID 40 MG PO (09:21)
[2023-08-08] MEDS: PROSCAR 5 MG PO (09:22)
[2023-08-08] MEDS: ASPIR LOW (ENTERIC COATED) 81 MG PO (09:22)
[2023-08-08] MEDS: D5/0.45%NACL 1000 IV (09:22)
[2023-08-08] MEDS: TOPROL XL 100 MG PO ×2 (09:25→21:10)
--- NOTE | 2023-08-08 09:32 | W.PN.CD ---
Today's Communication / Plan
-
Coronary angiography today to clarify anatomy.
GDMT as hemodynamics will tolerate.
Evaluate telemetry for evidence of atrial fibrillation.
Impression / Plan
-
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
placement), troponin elevation and new decline in systolic function (LVEF ~10%).
#Altered Mental Status
-New diagnosis.
-Multifactorial due to metabolic abnormalities and possible infection.
-Improving, though the patient is still AAO x2 (uncertain of time).
#Abnormal troponin:
-Denies any CP or SOB.
-Troponin peaked at 23 (first draw).
-Possible Type II NM in setting of known coronary disease and acute underlying infectious illness vs late presentation after Type I NM occurring prior to presentation to the hospital.
-ASA 81mg daily. Holding on heparin.
#ICM/HFrEF
-Chronic, acutely worsened.
-Prior EF 50%, now down to 15%, with severe MR.
-Auto diuresing with placement of champagne catheter.
-Cardiac catheterization to assess coronary anatomy, LVEDP.
-Currently tolerating metoprolol 100 mg BID.
-GDMT as hemodynamics will tolerate.
#Acute renal failure
-Obstructive due to BPH.
-Resolved.
#CAD
-Chronic.
-Hx of 1V CABG (BURT to LAD) circa 1998.
-Continue ASA, statin, and metoprolol.
-Coronary angiography today.
#IDDM
-Chronic, stable.
-Management per primary team.
-We will be adding SGLT2i.
#HTN:
-Chronic, stable.
-Monitor with medication additions/GDMT/BPH medications.
Subjective/Interval History:
Possible atrial fibrillation on telemetry. HR up to 130, now improved.
Weight is down 4.2 kg from admission.
Blood pressure stable.
SaO2 96% on 2LNC.
The patient is very fatigued and only answers yes/no questions.
Consent for catheterization was obtained via his daughter/POA ([facility]).
DATA:
CT Abdomen/Pelvis, 08/03/2023:
IMPRESSION:
1).The prostate is enlarged measuring 6.9 cm
The urinary bladder is markedly distended measuring approximately 14 x 14 x 12 cm.
There is severe left-sided hydronephrosis and left hydroureter down to the level of the urinary bladder and moderate right hydronephrosis and right artery down to the level of the urinary bladder. Additionally, there is moderate-severe bilateral
perinephric edema.
2). There is a 4 mm wall calcification at the anterior aspect of the right side of the urinary bladder.
3). There is cholecystectomy.
4).There is small right pleural effusion with compressive atelectasis of the right lung base.
There is mild acinar and interstitial airspace disease posterior left lung base.
TTE, 08/03/2023:
CONCLUSIONS
�Mild left ventricular dilation with akinesis of the septal, inferior and
�inferolateral luna and severe hypokinesis of the remaining
�anterior/anterolateral wall with severely reduced left ventricular systolic
�function. Left ventricular ejection fraction is 10-15% by visual assessment.�
�Diastolic function indeterminate.
�Normal right ventricular size. Normal right ventricular systolic function.
�Moderate left atrial dilation.
�Mild mitral annular calcification.� Mitral sclerosis without stenosis.� Severe
�mitral valve regurgitation.
�Calcified, trileaflet aortic valve with restricted motion of the right coronary
�leaflet. Aortic sclerosis without stenosis. Trace aortic regurgitation.
�The IVC was not visualized.
�At least moderate pulmonary hypertension.
�
�Compared to prior study of 07/20/2021, systolic function is now severely
�impaired, ejection fraciton has fallen from 50% to 10-15%, mitral regurgitation
�is now severe and there is now at least moderate pulmonary hypertension.
Physical Exam
Vital Signs/Labs
Vital Signs
Temp Pulse Resp BP Pulse Ox
36.7 C 79 20 133/69 96
08/08/23 07:35 08/08/23 07:35 08/08/23 07:35 08/08/23 07:35 08/08/23 07:35
08/06/23 08/07/23 08/08/23
11:59 11:59 11:59
Actual Weight 88.904 kg 88.269 kg 87.226 kg
08/08/23 04:39
08/08/23 04:39
PT 14.3 Sec (11.4-14.6) 08/03/23 18:01
INR 1.11 08/03/23 18:01
APTT 25.3 Sec (23.4-35.0) 08/03/23 18:01
TSH 1.94 uIU/ml (0.47-4.68) 08/03/23 10:13
08/03/23
10:13
Bso-V-Mklrstlvjwg Pept [id number]
Physical Exam
Constitutional: No acute distress and Comfortable
EENT: Anicteric and Moist mucous membranes
Cardiovascular: Rhythm & rate is regular, Pedal edema is absent, JVD pressure is normal, S1S2 is normal and Murmur/rub/gallop absent
Respiratory: Respiratory effort normal, Lungs clear to auscul., Wheeze Absent, Crackles Absent and Rhonchi Absent
GI: Soft, Distention absent, Flat, Non tender and Normal bowel sounds
Neuro/Psych: Other (Fatigued, answering yes/no questions only.)
Data Reviewed
-
Date of Service: August 08, 2023
Medical Decision Making: Reviewed Test Results, Independent Historian Assessment, Test Interpretation and Review of Case with other Provider
EKG: Tracing Personally Visualized and interpreted and Report Reviewed by me
Echo: Tracing Personally Visualized and interpreted and Report Reviewed by me
X-Ray/CT/US/MRI/NUC/PET: Image Personally Visualized and interpreted and Report Reviewed by me
Medical Tests (PFT, Pathology etc): Report Reviewed by me
Labs: Labs Reviewed by me
Old Records: Reviewed
--- NOTE | 2023-08-08 10:20 | W.PN.HOSP.TC ---
Addendum entered and electronically signed by Kennedy Cleveland MD 08/08/23 16:11:
Patient seen and examined
Discussed with resident
Discussed with patient's daughter at the bedside
Impression/plan
Ischemic cardiomyopathy with LVEF of 25%. (55% in the past.
Acute systolic CHF.
Cardiac cath today with 80% distal left main lesion, chronic total occlusion of mid LAD, diffuse disease in the both circumflex and RCA with oubn-eg-kngwr collaterals supplying small RPDA. No options for revascularization. Noted severely elevated
filling pressures, severe pulmonary hypertension.
Plan is to optimize medical therapy
Continue diuresis.
Acute kidney injury secondary to severe obstructive uropathy
Improved with decompression with Campbell catheter
Initiated on Flomax and Proscar.
Plan is to keep Campbell catheter for outpatient urology follow-up.
Has been off of CORNELIO
Toxic metabolic encephalopathy likely multifactorial.
Monitor closely
Supportive care.
Diabetes
Continue insulin adjusting dose according to oral intake. Standing dose of Lantus held due to n.p.o. and peripheral cath.
Original Note:
Today's Communication/Plan
-
- Continue IV diuresis in light of severely elevated filling pressures, per cath.
- Guideline directed medical therapy for HFrEF, as tolerated.
- Continue metoprolol 100 mg BID.
Assessment / Plan
Assessment / Plan
Impressions:
* Altered mental status/toxic metabolic encephalopathy secondary to acute kidney injury
* SHADY likely secondary to acute obstructive uropathy
* Bilateral hydronephrosis
* Abnormal urinalysis with concern for UTI.
* Normal anion gap metabolic acidosis.
* Marginally elevated lactic acid level.
* Hyperkalemia.
* Type II myocardial infarction secondary to ischemic cardiomyopathy; heart failure with reduced ejection fraction
Conditions prior to admission:
* Coronary artery disease, status post single-vessel coronary artery bypass graft.
* Ischemic cardiomyopathy
* Insulin-dependent diabetes mellitus
* Essential hypertension
* Dyslipidemia.
* Hypothyroidism on replacement
Plan:
Altered mental status/toxic metabolic encephalopathy secondary to acute kidney injury
- No focal findings on neurologic exam
- Most likely toxic metabolic encephalopathy in the settings of acute kidney injury.
- CT scan of the head with no acute abnormalities.
- Monitor closely.
- Repeat CXR on 08-06-23 showed 'poor inspiratory effort, low lung volumes, slight worsening aeration of the lung bases.'
- Continue PT/OT.
- Overall improved today.
Acute kidney injury.
- Obstructive uropathy: enlarged prostate (6.9 cm) with urinary retention, severe left-sided hydronephrosis and left hydroureter down to the level of the urinary bladder and moderate right hydronephrosis and right artery down to the level of the
urinary bladder.
- Catheterized with 2 L of urine drained with Campbell catheter placed in ED on 08-03-23
- Renal function improved with urinary tract decompression
- Initiated on Flomax and Proscar.
- Plan is to discharge home with Campbell catheter and urology follow-up.
Normal anion gap metabolic acidosis
- Suspect multifactorial with SHADY, as well as reported prolonged period of diarrhea with recent antibiotic administration
- Hyperkalemia in the settings of metabolic acidosis and CORNELIO patient
- Hold ramipril.
- Improving with urinary tract decompression and diuresis
Abnormal urinalysis mostly with microhematuria.
- Afebrile and hemodynamically stable
- Urine cultures negative to date
- Antibiotics/ceftriaxone discontinued on 08-05-23.
- Monitor while off antibiotics.
Type II myocardial infarction secondary to ischemic cardiomyopathy; heart failure with reduced ejection fraction
- Ischemic cardiomyopathy chronic; acutely worsened.
- Coronary artery disease, status post single-vessel coronary artery bypass graft
- Troponin of 23.5 on admission on 08-03-23, trending down.
- No chest pain.
- ECG suggestive of possible inferior ischemia.
- Echocardiogram from 07-20-21 showed LVEF of 50%; repeat echocardiogram in ED 08-03-23: Mild left ventricular dilation with akinesis of septal, inferior and inferior lateral luna and severe hypokinesis of the remaining anterior/anterior lateral
wall with severely reduced LVEF at 10-15%.
- Tolerating metoprolol 100 mg BID.
- Cath on 08-08-23 noted severe pulmonary hypertension and severely elevated filling pressures.
- No role for revascularization as there are no amenable arteries
Insulin-dependent diabetes mellitus
- HbA1c on 08-04-23 was 9.0.
- Reported erratic blood glucose upon presentation
- Hyperglycemic on BMP today.
- Hold SGLT2 inhibitor and metformin given abnormal renal function with planned heart cath
- Noted mild elevation of serum hydroxybutyrate doubt DKA as no evidence of hyperglycemia and now improved metabolic acidosis.
- Insulin requirements increased with recovery of renal function
- Reinstate preadmission insulin regimen: Lantus 22 units at bedtime/will decrease NovoLog to 6 units AC.
- Continue basal bolus protocol with serial Accu-Cheks
- Target glucose within 99-149 range; decreased premeal insulin dosing.
- Lowered Lantus dose last night, for anticipated cath today; started IV with Dextrose in AM to avoid hypoglycemia.
- Can go back to usual dosing post-cath.
Persistent diarrhea with recent antibiotic administration.
- Stool negative for C. difficile.
Hypothyroidism
- TSH within normal limits on 08-03-23.
- Continue levothyroxine at the preadmission dose
- Repeat TSH outpatient post-discharge.
DVT prophylaxis
- Mechanical.
Code status
- Full code.
Anticipated Discharge: 24 - 48 hours
Subjective/Interval History
-
Date of Service: August 08, 2023
Objective Data
-
Labs:
Laboratory Results
08/08/23
04:39
WBC 8.8
Hgb 12.6 L
Hct 38.8 L
Plt Count 219
Sodium 139
Potassium 4.0
Chloride 104
Carbon Dioxide 28
BUN 21 H
Creatinine 0.6 L
Glucose 166 H
Calcium 8.2 L
Vital Signs:
Vital Signs
Temp Pulse Resp BP Pulse Ox
98.1 F 69 20 133/69 96
08/08/23 07:35 08/08/23 09:25 08/08/23 07:35 08/08/23 09:25 08/08/23 07:35
I&O
08/07/23 08/08/23 08/09/23
06:59 06:59 06:59
Intake Total 1770 / 1770 920 / 920
Output Total 3000 / 3000 3000 / 3000
Balance -1230 / -1230 -2079 / -2079
Review of Systems
-
History Source: Patient and Family
Respiratory: Reports Cough (productive of yellow phlegm)
Cardiac: Reports No Symptoms
Abdomen/GI: Reports No Symptoms
Musculoskeletal: Reports No Symptoms
Skin: Reports No Symptoms
Physical Exam
-
General: No Apparent Distress and Comfortable
HEENT: Normocephalic, Atraumatic and Moist Mucous Membranes
Respiratory: Rales
Cardiac: Regular Rhythm and S1/S2
GI: Soft, Nondistended and No Hepatosplenomegaly
Genito-urinary: No Costovertebral Tender
Musculoskeletal: No Clubbing, No Cyanosis, No Edema and Other (bilateral heels with small pressure sores)
Skin: Rash
Neuro: Alert, Oriented and Other (mildly somnolent)
Psych: Calm
[2023-08-08 10:35] LABS: Glucose - Point of Care 136 mg/dl (70-99)
--- NOTE | 2023-08-08 11:39 | ITS.CL.CATH ---
[employer] - Catheterization
Cardiac Catheterization
Procedure Report:
CARDIAC CATHETERIZATION REPORT
Date of Procedure: 08/08/2023
Referring: Ludin Douglass M.D., Ph.D.
Indication: New Cardiomyopathy.
PROCEDURE:
1. Right heart catheterization.
2. Coronary angiography.
3. Bypass angiography.
ACCESS:
6 Filipino left radial artery.
5 Filipino left common femoral vein using a modified Seldinger technique with a micropuncture kit under ultrasound guidance.
CATHETERS:
1. 5 Filipino balloon wedge.
2. 5 Filipino CLINT.
3. 5 Filipino JL 4.
4. 5 Filipino JR4.
HEMODYNAMIC DATA
Weight (kg): 87.1
AO (s/d/x mmHg): 159/88/118
LV (s/x mmHg): Not obtained.
PCWP (a/v/x mmHg): 48/47/43
PA (s/d/x mmHg): 88/43/58
RV (s/x mmHg): 88/20
RA (a/v/x mmHg): 26/23/21
SVC SvO2 (%): 54.6
PA SvO2 (%): 46.3
SaO2 (%): 94.2
Hbg (g/dL): 12.3
CO (L/min): 3.03
CI (L/min/m2): 1.48
TPG (mmHg): 15
PVR (Hopper Units): 4.95
SVR (dynes*seconds*cm^-5): 2561
AVO2 Diff (Volume %): 8.01
AV gradient (x, mmHg): Not obtained.
AV area (cm2): Not obtained.
LEFT VENTRICULOGRAPHY: Not performed.
CORONARY ANGIOGRAPHY
Dominance: Right.
Left Main: Normal size, trifurcating vessel. There is an 80%, densely calcified lesion at the terminal aspect of the left main.
LAD: Normal size vessel giving rise to 2 diagonals. The vessel is chronically totally occluded in its midportion, immediately after the first diagonal. The mid and distal vessel are supplied by patent BURT graft. There is no significant
disease after the WAITER/WAITRESS CAPTAIN.
Ramus: Small, 1.5 mm vessel that ends in the proximal anterolateral base.
Circumflex: Nondominant vessel that is chronically totally occluded at its ostium. Collaterals to the terminal vessels are seen from the first diagonal and from the distal LAD, but the vessel appears diffusely diseased.
RCA: Dominant vessel that is chronically totally occluded in its midportion. The RPDA is supplied by [id number] collaterals from an atrial branch as well as from the apical LAD. The RPDA is a small, 1 mm vessel.
BYPASS GRAFT ANGIOGRAPHY
BURT to LAD: Normal size graft with end-to-side anastomosis to the mid vessel. There is no evidence of stenosis or graft degeneration.
INTERVENTIONS
None.
Closure Device: Vascular band for the left radial artery, manual pressure for the left common femoral vein.
Radiation dose (mGy): 331.91
DAP (cm2.Gy): 33.6982
Fluoroscopy time (minutes): 7.5
Sedation time (minutes): 16
CONCLUSIONS:
1. Right dominant circulation with an 80% distal left main lesion, chronic total occlusion of the mid LAD, diffuse disease of both the circumflex and RCA with left to right collaterals supplying the small RPDA. There is no option for
revascularization.
2. Severely elevated filling pressures (PCWP = 43 mmHg at 87.1 kg).
3. Severe pulmonary hypertension, WHO group 5.
4. Severe encephalopathy. The patient had difficultly remaining still during the procedure.
RECOMMENDATIONS:
1. Expectant management after cardiac catheterization via left radial approach.
2. Limited weight bearing on the left wrist for one week.
3. Furosemide 40 mg IV and 1 spray of sublingual nitroglycerin given in the [employer].
4. Continue aggressive IV diuresis in light of severely elevated filling pressures.
5. Reintroduce guideline directed medical therapy.
6. Further workup of encephalopathy.
7. No role for revascularization as there are no amenable arteries.
Copy to: Ludin Douglass M.D., Ph.D., Danyel Hicks M.D., Martín Barber M.D.
Evelio Morris DO, FACC, FACP
--- NOTE | 2023-08-08 12:00 | WOUNDNOTE ---
WO RN NOTE: Reviewed chart, visited patient's room. 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 Will return to assess on 06/08/2024. RN Renetta made aware
[2023-08-08 13:57] LABS: Glucose - Point of Care 180 mg/dl (70-99)
--- NOTE | 2023-08-08 15:04 | CM ---
Reviewed the chart notes. [facility] able to accept patient when medically stable. No precert required. Patient live in independent living at [facility]. PT recommending SNF/rehab prior to returning to apartment. CM continues to be available to
patient/family and is monitoring medical plan for needs at discharge.
Plan: Discharge to [facility] when medically stable.
[2023-08-08 15:55] LABS: Glucose - Point of Care 170 mg/dl (70-99)
[2023-08-08] MEDS: NOVOLOG FLEXPEN 6 UNITS SC ×2 (16:00→18:18)
[2023-08-08] MEDS: NOVOLOG FLEXPEN-LOW RESISTANCE SC ×2 (16:44→16:52)
[2023-08-08] MEDS: LIPITOR 40 MG PO (16:51)
[2023-08-08] MEDS: SYNTHROID 75 MCG PO (16:51)
[2023-08-08 18:18] LABS: Glucose - Point of Care 291 mg/dl (70-99)
[2023-08-08] MEDS: NOVOLOG FLEXPEN-LOW RESISTANCE 3 UNITS SC (18:20)
[2023-08-08 21:43] LABS: Glucose - Point of Care 265 mg/dl (70-99)
[2023-08-09 03:36] VITALS: BP 124/60
[2023-08-09 05:15] LABS: % Immature Granulocytes 0.5 % (0-0.5); % Lymphocytes 4.2 % (20.5-51.1); % Monocytes 8.9 % (1.7-9.3); % Neutrophils 86.4 % (42.2-75.2); Absolute Lymphocytes 0.3 10^3/uL (1.2-3.4); Absolute Monocytes 0.7 10^3/uL (0.1-0.6); Hematocrit 37.8 % (39.0-52.0); Hemoglobin 12.2 g/dL (13.0-18.0); Mean Corp Hgb Conc. 32.3 g/dL (33.0-37.0); Mean Corpuscular Volume 92.9 fL (80.0-94.0); Mean Platelet Volume 11.1 fL (7.4-10.4); Nucleated Red Blood Cells % 0 % (-); Platelet Count 222 10^3/uL (130-400); Red Blood Cell Count 4.07 10^6/uL (4.70-6.10); White Blood Cell Count 8.1 10^3/uL (4.8-10.8)
[2023-08-09 05:46] LABS: Blood Urea Nitrogen 27 mg/dl (9-20); Calcium 8.2 mg/dl (8.4-10.2); Carbon Dioxide 28 mmol/L (22-30); Chloride 105 mmol/L (98-107); Estimated Creatinine Clearance 70 ml/min; Glucose 253 mg/dl (70-99); Potassium 3.9 mmol/L (3.5-5.1); Sodium 139 mmol/L (135-145); eGFR > 60.00
[2023-08-09 06:00] VITALS: BMI 26.8
[2023-08-09 07:13] VITALS: BP 136/63
[2023-08-09 07:45] LABS: Glucose - Point of Care 301 mg/dl (70-99)
[2023-08-09] MEDS: NOVOLOG FLEXPEN 6 UNITS SC ×2 (08:24→12:02)
[2023-08-09] MEDS: ASPIR LOW (ENTERIC COATED) 81 MG PO (08:25)
[2023-08-09] MEDS: NOVOLOG FLEXPEN-LOW RESISTANCE 4 UNITS SC (08:25)
[2023-08-09] MEDS: FLOMAX 0.400000000000000022 MG PO (08:25)
[2023-08-09] MEDS: TOPROL XL 100 MG PO (08:25)
[2023-08-09] MEDS: PROSCAR 5 MG PO (08:26)
[2023-08-09] MEDS: JARDIANCE 25 MG PO (08:26)
[2023-08-09] MEDS: LASIX 40 MG IV (08:28)
--- NOTE | 2023-08-09 08:48 | W.PN.CD ---
Today's Communication / Plan
-
-Type II DC in setting of known coronary disease, acute underlying infectious illness, and low EF vs late presentation after Type I DC occurring prior to presentation to the hospital--will add Plavix in case of the latter.
-Continue ASA 81mg daily.
-PCWP was 43 yesterday; will place on Lasix 40 mg IV BID.
Impression / Plan
-
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
placement), troponin elevation and new decline in systolic function (LVEF ~10%).
#Altered Mental Status
-Multifactorial due to metabolic abnormalities and possible infection.
-Management as per primary team.
#Abnormal troponin:
-Denies any CP or SOB.
-Troponin peaked at 23 (first draw).
-Type II DC in setting of known coronary disease, acute underlying infectious illness, and low EF vs late presentation after Type I DC occurring prior to presentation to the hospital--will add Plavix in case of the latter.
-Continue ASA 81mg daily.
#Acute ICM/HFrEF
-Chronic, acutely worsened.
-Prior EF 50%, now down to 15%, with severe MR.
-Auto diuresing with placement of champagne catheter.
-PCWP was 43 yesterday; will place on Lasix 40 mg IV BID.
-Continue metoprolol 100 mg BID and Jardiance 25 mg daily.
-No ACEi/ARB/ARNI aecondary to acute renal failure on admission (creatinine 4.7).
#Acute renal failure
-Obstructive due to BPH.
-Resolved.
#CAD
-Chronic.
-Hx of 1V CABG (BURT to LAD) circa 1998; patent on cardiac catheterization yesterday.
-Diseased RCA and LCX; starting Plavix as above.
-Continue ASA, statin, and metoprolol.
#IDDM
-Chronic, stable.
-Management per primary team.
-Continue SGLT2i.
#HTN:
-Chronic, stable.
-Monitor with medication additions/GDMT/BPH medications.
Subjective/Interval History:
No major events overnight.
DATA:
CT Abdomen/Pelvis, 08/03/2023:
IMPRESSION:
1).The prostate is enlarged measuring 6.9 cm
The urinary bladder is markedly distended measuring approximately 14 x 14 x 12 cm.
There is severe left-sided hydronephrosis and left hydroureter down to the level of the urinary bladder and moderate right hydronephrosis and right artery down to the level of the urinary bladder. Additionally, there is moderate-severe bilateral
perinephric edema.
2). There is a 4 mm wall calcification at the anterior aspect of the right side of the urinary bladder.
3). There is cholecystectomy.
4).There is small right pleural effusion with compressive atelectasis of the right lung base.
There is mild acinar and interstitial airspace disease posterior left lung base.
TTE, 08/03/2023:
CONCLUSIONS
�Mild left ventricular dilation with akinesis of the septal, inferior and
�inferolateral luna and severe hypokinesis of the remaining
�anterior/anterolateral wall with severely reduced left ventricular systolic
�function. Left ventricular ejection fraction is 10-15% by visual assessment.�
�Diastolic function indeterminate.
�Normal right ventricular size. Normal right ventricular systolic function.
�Moderate left atrial dilation.
�Mild mitral annular calcification.� Mitral sclerosis without stenosis.� Severe
�mitral valve regurgitation.
�Calcified, trileaflet aortic valve with restricted motion of the right coronary
�leaflet. Aortic sclerosis without stenosis. Trace aortic regurgitation.
�The IVC was not visualized.
�At least moderate pulmonary hypertension.
�
�Compared to prior study of 07/20/2021, systolic function is now severely
�impaired, ejection fraciton has fallen from 50% to 10-15%, mitral regurgitation
�is now severe and there is now at least moderate pulmonary hypertension.
Physical Exam
Vital Signs/Labs
Vital Signs
Temp Pulse Resp BP Pulse Ox
97.6 F 67 16 144/88 98
08/09/23 07:13 08/09/23 08:28 08/09/23 07:13 08/09/23 08:28 08/09/23 07:13
08/08/23 08/09/23 08/10/23
06:59 06:59 06:59
Actual Weight 87.226 kg 84.867 kg
08/09/23 04:21
08/09/23 04:21
PT 14.3 Sec (11.4-14.6) 08/03/23 18:01
INR 1.11 08/03/23 18:01
APTT 25.3 Sec (23.4-35.0) 08/03/23 18:01
TSH 1.94 uIU/ml (0.47-4.68) 08/03/23 10:13
08/03/23
10:13
Vnm-O-Zslekaxqxrh Pept 23192
Physical Exam
Constitutional: No acute distress and Comfortable
EENT: Anicteric
Cardiovascular: Rhythm & rate is regular, Pedal edema present (trivial at ankles), Systolic murmur present (2/6) and S1S2 is normal
Respiratory: Respiratory effort normal and Crackles Present (Bibasilar)
GI: Soft
Neuro/Psych: Alert
Other: Skin (Warm, dry, intact)
Data Reviewed
-
Date of Service: August 09, 2023
EKG: Tracing Personally Visualized and interpreted (Telemetry: Sinus rhythm, PVCs/bigeminy)
Echo: Report Reviewed by me (EF 10-15%, severe MR)
Medical Tests (PFT, Pathology etc): Discussed with Patient and Discussed with Family (Daughter (Grecia) at bedside)
Labs: Labs Reviewed by me
[2023-08-09] MEDS: PLAVIX 75 MG PO (09:38)
--- NOTE | 2023-08-09 10:06 | WOUNDNOTE ---
GLUTEAL CLEFT AND R BUTTOCK
--- NOTE | 2023-08-09 10:07 | WOUNDNOTE ---
CLOSER VIEW OF HEELS
--- NOTE | 2023-08-09 10:08 | WOUNDNOTE ---
R MEDIAL LOWER LEG
--- NOTE | 2023-08-09 10:09 | WOUNDNOTE ---
L 5TH TOE NAIL LIFTED UP
--- NOTE | 2023-08-09 10:10 | WOUNDNOTE ---
WON RN note: Patient admitted with acute UTI, renal failure and metabolic encephalopathy.
See H&P for complete history. Lives alone at [facility].
PMH: NIDDM,HTN,CAD,RF,CABG X2 1998
Wound Location and type/assessment: Patient admitted with: stage 2 gluteal cleft and R buttock PI, surrounding skin blanchable red. Patient confirmed he sits for prolonged periods of time and uses donut type cushion. Heels with dry cracked
fissures, blanchable red and boggy. R medial lower leg with patch of weeping skin, edema in both legs and feet. + audible pulses with Doppler. Uses compression at home but does not recall type.
Appetite: Good.
Pressure redistribution devices in place: Accumax, asked nurse to apply air overlay when patient next oob to chair. Air chair cushion on pillow placed under calves to offload heels.
Plan: Silicone foam to buttocks/cleft, if does not hold then use barrier cream. Applied A&D ointment today to dry skin on legs and feet, will order mineral oil for tomorrow. Applied foams to heels. R medial leg adaptic and ABD pad underneath bhavya
wraps to both legs knee high. Leg elevation when oob to chair, air cushion for sitting.
Will confirm orders with hospitalist and updated nurse Amber.
Updated care plan and will follow as needed.
Note to case management of equipment requested for discharge: VN
Recommend follow up at wound care center upon discharge.
[2023-08-09 11:05] VITALS: BP 107/56
[2023-08-09 11:40] VITALS: BP 105/59; BP 107/56; BP 111/64; PULSE 66; PULSE 74; PULSE 76; O2SAT 97
[2023-08-09 11:42] VITALS: BP 105/59; BP 111/64; BP 116/68; PULSE 66; PULSE 74; PULSE 76; O2SAT 97
[2023-08-09 11:43] LABS: Glucose - Point of Care 292 mg/dl (70-99)
[2023-08-09] MEDS: ALTACE 5 MG PO (12:01)
[2023-08-09] MEDS: PROTONIX 40 MG PO (12:01)
[2023-08-09] MEDS: SYNTHROID 75 MCG PO (12:02)
[2023-08-09] MEDS: NOVOLOG FLEXPEN-LOW RESISTANCE 3 UNITS SC (12:02)
[2023-08-09] MEDS: LIPITOR 40 MG PO (12:02)
--- NOTE | 2023-08-09 12:52 | W.PN.HOSP.TC ---
Today's Communication/Plan
-
- Furosemide 40 mg IV BID and continue ASA.
- Continue tamsulosin and finasteride.
- Start clopidogrel.
- Plan is to keep Campbell catheter for outpatient urology follow-up.
Assessment / Plan
Assessment / Plan
Impressions:
* Type II myocardial infarction secondary to ischemic cardiomyopathy; heart failure with reduced ejection fraction
* Altered mental status/toxic metabolic encephalopathy secondary to acute kidney injury
* SHADY likely secondary to acute obstructive uropathy
* Bilateral hydronephrosis
* Abnormal urinalysis with concern for UTI.
* Normal anion gap metabolic acidosis.
* Marginally elevated lactic acid level.
* Hyperkalemia.
Conditions prior to admission:
* Coronary artery disease, status post single-vessel coronary artery bypass graft.
* Ischemic cardiomyopathy
* Insulin-dependent diabetes mellitus
* Essential hypertension
* Dyslipidemia.
* Hypothyroidism on replacement
Plan:
Type II myocardial infarction secondary to ischemic cardiomyopathy; heart failure with reduced ejection fraction
- Ischemic cardiomyopathy chronic; acutely worsened.
- Coronary artery disease, status post single-vessel coronary artery bypass graft
- Troponin of 23.5 on admission on 08-03-23, trending down.
- No chest pain.
- ECG suggestive of possible inferior ischemia.
- Echocardiogram from 07-20-21 showed LVEF of 50%; repeat echocardiogram in ED 08-03-23: Mild left ventricular dilation with akinesis of septal, inferior and inferior lateral luna and severe hypokinesis of the remaining anterior/anterior lateral
wall with severely reduced LVEF at 10-15%.
- Tolerating metoprolol 100 mg BID.
- Cath on 08-08-23 noted severe pulmonary hypertension and severely elevated filling pressures.
- No role for revascularization as there are no amenable arteries.
- Question regarding type II myocardial infarction vs. late presentation after type I [place] occurring prior to presentation to the hospital.
- Can add clopidogrel in case of the latter.
- Start furosemide 40 mg IV BID considering that PCWP was 43 on cath.
Altered mental status/toxic metabolic encephalopathy secondary to acute kidney injury
- No focal findings on neurologic exam
- Most likely toxic metabolic encephalopathy in the settings of acute kidney injury.
- CT scan of the head with no acute abnormalities.
- Monitor closely.
- Repeat CXR on 08-06-23 showed 'poor inspiratory effort, low lung volumes, slight worsening aeration of the lung bases.'
- Continue PT/OT.
- Overall improved.
Acute kidney injury, resolved
- Obstructive uropathy: enlarged prostate (6.9 cm) with urinary retention, severe left-sided hydronephrosis and left hydroureter down to the level of the urinary bladder and moderate right hydronephrosis and right artery down to the level of the
urinary bladder.
- Catheterized with 2 L of urine drained with Campbell catheter placed in ED on 08-03-23
- Renal function improved with urinary tract decompression
- Initiated on Flomax and Proscar.
- Plan is to discharge home with Campbell catheter and urology follow-up.
Normal anion gap metabolic acidosis, resolved
- Suspect multifactorial with SHADY, as well as reported prolonged period of diarrhea with recent antibiotic administration
- Hyperkalemia in the settings of metabolic acidosis and CORNELIO patient
- Hold ramipril.
- Improving with urinary tract decompression and diuresis
Abnormal urinalysis mostly with microhematuria.
- Afebrile and hemodynamically stable
- Urine cultures negative to date
- Antibiotics/ceftriaxone discontinued on 08-05-23.
- Monitor while off antibiotics.
Insulin-dependent diabetes mellitus
- HbA1c on 08-04-23 was 9.0.
- Reported erratic blood glucose upon presentation
- Hyperglycemic on [facility] today.
- Hold SGLT2 inhibitor and metformin given abnormal renal function with planned heart cath
- Noted mild elevation of serum hydroxybutyrate doubt DKA as no evidence of hyperglycemia and now improved metabolic acidosis.
- Insulin requirements increased with recovery of renal function
- Reinstate preadmission insulin regimen: Lantus 22 units at bedtime/will decrease NovoLog to 6 units AC.
- Continue basal bolus protocol with serial Accu-Cheks
- Target glucose within 99-149 range; decreased premeal insulin dosing.
- Lowered Lantus dose last night, for anticipated cath today; started IV with Dextrose in AM to avoid hypoglycemia.
- Can go back to usual dosing post-cath.
Persistent diarrhea with recent antibiotic administration.
- Stool negative for C. difficile.
Hypothyroidism
- TSH within normal limits on 08-03-23.
- Continue levothyroxine at the preadmission dose
- Repeat TSH outpatient post-discharge.
DVT prophylaxis
- Mechanical.
Code status
- Full code.
Anticipated Discharge: 24 - 48 hours
Subjective/Interval History
-
Date of Service: August 09, 2023
Objective Data
-
Labs:
Laboratory Results
08/09/23
04:21
WBC 8.1
Hgb 12.2 L
Hct 37.8 L
Plt Count 222
Sodium 139
Potassium 3.9
Chloride 105
Carbon Dioxide 28
BUN 27 H
Creatinine 0.8
Glucose 253 H
Calcium 8.2 L
Vital Signs:
Vital Signs
Temp Pulse Resp BP Pulse Ox
97.7 F 66 16 107/56 97
08/09/23 11:05 08/09/23 12:01 08/09/23 11:05 08/09/23 12:01 08/09/23 11:05
I&O
08/08/23 08/09/23 08/10/23
06:59 06:59 06:59
Intake Total 920 / 920 1540 / 1540
Output Total 3000 / 3000 4380 / 4380
Balance -2080 / -2080 -2840 / -2840
Review of Systems
-
History Source: Patient and Family
Constitutional: Reports Fatigue
Respiratory: Reports Cough
Cardiac: Reports No Symptoms
Abdomen/GI: Reports No Symptoms
Breast: Reports No Symptoms
Musculoskeletal: Reports No Symptoms
Physical Exam
-
General: No Apparent Distress and Comfortable
HEENT: Normocephalic, Atraumatic, Moist Mucous Membranes, Anicteric and No Ptosis
Respiratory: Rales
Cardiac: Regular Rhythm and S1/S2
GI: Soft, Nontender, Nondistended and No Hepatosplenomegaly
Genito-urinary: No Costovertebral Tender
Musculoskeletal: No Clubbing, No Cyanosis and No Edema
Skin: Rash
Neuro: AO x 3 and Other (mildly somnolent)
Psych: Calm
--- NOTE | 2023-08-09 13:12 | W.PN.ANESINT ---
Anesthesia Intubation Note
- Intubation Note
Intubation Note:
Diagnosis: code
Blade: videoscope 4
Tube Size: 8.0
Depth: 24@lip
Side Taped:
Drugs Used: none
Grade View: I
EtCO2 Present: sustained color changed
Atraumatic: yes
Attempts: 1
Insertion Start and Stop Time:
SaO2 Pre:
SaO2 Post:
Glidescope Used: videoscope
Other Airway Adjustments:
Pre-Oxygenated:
Portable Chest X-Ray:
RSI:
Suctioned:
Bilateral Breath Sounds Confirmed: yes, code called.
Vent Settings:
Settings per ___Attending Physician
--- NOTE | 2023-08-09 13:15 | PTCARENOTE ---
This RN provided champagne catheter hygiene to patient, assisted patient in eating teresa cracker while in chair position in bed; patient alert and oriented x2, conversant with this RN and stated no concerns during care. After care, patient's tele
monitor alarmed showing vtach, HR in 220s-240s. This RN went in to assess patient, found patient unresponsive to sternal rub with agonal breathing. Charley RN at bedside with this RN, rapid response called, no brachial pulse felt on palpation,
compressions initiated and Code 9 called - refer to code 9 paper.
--- NOTE | 2023-08-09 15:08 | CHAP ---
Emotional and spiritual support provided for Dr. Live's daughter during code and after his .
--- NOTE | 2023-08-09 17:38 | W.PN.DEATH ---
Pronouncement of
-
Called to see patient to pronounce.
No spontaneous heart tones or respirations noted.
Patient not responsive to verbal stimuli.
Patient is pronounced .
Time of : 13:03
Date of : 08/09/23
Cause of : Cardiac arrest. Ventricular tachycardia. Severe ischemic cardiomyopathy
Family Notified: Yes
== END 2023-08-09 18:33 | disposition expired ==
LOC: 2 NORTH 15:15
PROVIDERS: Internal Medicine; Internal Medicine Cardiovascular Disease; ADMITTING PHYSICIAN Internal Medicine; CONSULT PHYSICIAN Internal Medicine; CONSULT PHYSICIAN Internal Medicine Critical Care Medicine; CONSULT PHYSICIAN Specialist; EMERGENCY PHYSICIAN Emergency Medicine; FAMILY PHYSICIAN Internal Medicine
PROC: B2111ZZ Fluoroscopy of Multiple Coronary Arteries using Low Osmolar Contrast (ICD-10-PCS; 2023-08-08)
PROC: 4A023N6 Measurement of Cardiac Sampling and Pressure, Right Heart, Percutaneous Approach (ICD-10-PCS; 2023-08-08)
DX: I11.0 Hypertensive heart disease with heart failure (principal); I21.A1 Myocardial infarction type 2; G92.8 Other toxic encephalopathy; I25.810 Atherosclerosis of coronary artery bypass graft(s) without angina pectoris; N17.9 Acute kidney failure, unspecified; E87.20 Acidosis, unspecified; I47.20 Ventricular tachycardia, unspecified; N13.6 Pyonephrosis; J98.11 Atelectasis; I50.20 Unspecified systolic (congestive) heart failure; E03.9 Hypothyroidism, unspecified; E78.00 Pure hypercholesterolemia, unspecified; E87.5 Hyperkalemia; I25.5 Ischemic cardiomyopathy; E11.9 Type 2 diabetes mellitus without complications; Z79.4 Long term (current) use of insulin; Z11.52 Encounter for screening for COVID-19; E88.09 Other disorders of plasma-protein metabolism, not elsewhere classified; D64.9 Anemia, unspecified; R33.8 Other retention of urine; N40.1 Benign prostatic hyperplasia with lower urinary tract symptoms; I27.29 Other secondary pulmonary hypertension; Z79.82 Long term (current) use of aspirin; I46.9 Cardiac arrest, cause unspecified; N13.9 Obstructive and reflux uropathy, unspecified
CPT/HCPCS: 51702; 70450; 71046; 74176; 80048; 80053; 81003; 81015; 82010; 82570; 82962; 83036; 83605; 83880; 84156; 84443; 84484; 85025; 85610; 85730; 87040; 87045; 87046; 87086; 87324; 87427; 87449; 87502; 87811; 93005; 93306; 93457; 93970; 96361; 96374; 97162; 97167; 97530; 99285; C1769; C1894; Q9967